=== PATIENT | female | born 1995 | race Caucasian/White ===

== ENCOUNTER → 2023-10-07 10:05 | Outpatient (REF) | payer OTHER, SELFPAY | LOC: RAD 10:05 | PROVIDERS: ATTENDING PHYSICIAN Family Medicine | DX: R10.11 Right upper quadrant pain (principal) | CPT/HCPCS: 76700 ==

== ENCOUNTER 2023-12-23 23:45 | Inpatient (IN) | payer OTHER, SELFPAY ==
[2023-12-23 19:40] VITALS: BP 159/105
[2023-12-23 20:05] LABS: HCG, Serum Qualitative Screen Negative
[2023-12-23 20:07] LABS: ALT (SGPT) 478 U/L (0-35); AST (SGOT) 342 U/L (14-36); Albumin 4.8 g/dl (3.5-5.0); Alkaline Phosphatase 296 U/L (38-126); Blood Urea Nitrogen 20 mg/dl (7-17); Calcium 10.2 mg/dl (8.4-10.2); Carbon Dioxide 21 mmol/L (22-30); Chloride 101 mmol/L (98-107); Glucose 97 mg/dl (70-99); Potassium 4.6 mmol/L (3.5-5.1); Sodium 141 mmol/L (135-145); Total Bilirubin 6.5 mg/dl (0.2-1.3); Total Protein 8.2 g/dl (6.3-8.2); eGFR > 60.00
[2023-12-23 20:08] LABS: Lipase 63 U/L (23-300)
[2023-12-23 20:11] LABS: % Basophils 0.4 % (0-2); % Eosinophils 0.4 % (0-6); % Immature Granulocytes 0.3 % (0-0.5); % Lymphocytes 20.4 % (20.5-51.1); % Monocytes 8.3 % (1.7-9.3); % Neutrophils 70.2 % (42.2-75.2); Absolute Basophils 0.1 10^3/uL (0-0.2); Absolute Eosinophils 0.1 10^3/uL (0-0.7); Absolute Lymphocytes 2.6 10^3/uL (1.2-3.4); Absolute Monocytes 1.1 10^3/uL (0.1-0.6); Absolute Neutrophils 8.9 10^3/uL (1.4-6.5); Hemoglobin 14.2 g/dL (12.0-16.0); Mean Corp Hgb Conc. 33.8 g/dL (33.0-37.0); Mean Corpuscular Hgb 29.7 pg (27.0-31.0); Mean Corpuscular Volume 87.9 fL (81.0-99.0); Mean Platelet Volume 9.4 fL (7.4-10.4); Nucleated Red Blood Cells % 0 %; Platelet Count 475 10^3/uL (130-400); Red Blood Cell Count 4.78 10^6/uL (4.20-5.40); Red Cell Dist. Width 13.3 % (11.5-14.5); White Blood Cell Count 12.7 10^3/uL (4.8-10.8)
[2023-12-23 21:35] VITALS: BP 155/92; BMI 35.6
[2023-12-23] MEDS: NSS 1000 IV (21:40)
[2023-12-23] MEDS: ROCEPHIN 1000 MG IV (21:41)
[2023-12-23 21:49] LABS: Urine Albumin 1+ (Neg - Trace); Urine Bilirubin 3+ (Negative); Urine Character Clear (Clear); Urine Color Amber; Urine Glucose Negative (Negative); Urine Ketone 3+ (Negative); Urine Leukocyte Trace (Negative); Urine Nitrite Negative (Negative); Urine Occult Blood Trace (Negative); Urine Specific Gravity 1.025 (<1.030); Urine Urobilinogen 3+ (Neg - 1+)
[2023-12-23 22:12] LABS: Urine Hyaline Cast 0-2 /LPF (0-2); Urine Mucus Many; Urine Squamous Cell 0-2 /LPF (Few)
[2023-12-23 22:14] LABS: Urine Bacteria Moderate (Negative); Urine Red Blood Cell 0-2 /HPF (0-2); Urine White Cell 0-2 /HPF (0-5)
--- NOTE | 2023-12-23 23:04 | ED.GENMED ---
History of Present Illness
General
Chief Complaint: Abdominal Symptoms
Time Seen by Provider: 12/23/23 20:57
History of Present Illness
History of Present Illness:
28-year-old female presents to the emergency department for evaluation of mild abdominal discomfort associated with jaundice and dark urine for the past 2 to 3 days. She notes that she was diagnosed with gallstones in September after having
postprandial abdominal pain, had not planned to have any surgical intervention at this point. Denies any fevers or vomiting currently. No history of intra-abdominal surgery
Past History
Past History
ED Past Medical History: None
Social History
Tobacco: Non-smoker
Drug: None
Personal: Single
Living: with family
Employment: Student
Review of Systems
Review of Systems
Allergies reviewed?: Yes
All Other Systems: ROS reviewed and negative except as documented in HPI and ROS
Phy Exam
Physical Exam
Physical Exam:
GEN: Well appearing, NAD, WDWN
Eyes: PERRLA, EOMs intact, mild scleral icterus
HENT: NCAT, oral mucosa moist, no JVD, no cervical adenopathy.
Lungs: CTAB, no wheezes, rales, rhonchi, normal chest wall excursion
Cardiac: RRR
Abdomen: S, NT, ND, NABS, no masses or hepatosplenomegaly
Neuro: AO x 3, no focal deficits to BUE/BLE, normal sensation throughout
MSK: No gross deformity or ecchymosis. No edema. No digital clubbing
Skin: No rashes, petechiae. Normal color, no pallor or jaundice.
Psych: Calm, cooperative, proper hygiene
Course
Orders/Labs/Results
Orders:
Orders
12/23/23 19:43
Test Result ONCE
12/23/23 19:49
Complete Blood Count/With Diff Urgent
Comprehensive Metabolic Panel Urgent
HCG, Serum Qualitative Screen Urgent
Lipase Urgent
12/23/23 21:07
US Abdomen Complete/Upper Urgent
Comment:
Reason For Exam: jaundice/abd pain
12/23/23 21:15
0.9% Sodium Chloride 1000 ml [Nss] 1,000 ml IV BOLUS
CefTRIAXone [Rocephin] 1,000 mg IV NOW STA
12/23/23 21:43
Urinalysis Reflex To Culture Urgent
Date Specimen was Collected: 12/23/23
Time Specimen was Collected: 21:33
Urine Microscopic Reflex Cult Urgent
Urine Culture Urgent
ARACELY Source: U
Specimen Description:
Date Specimen was Collected: 12/23/23
Time Specimen was Collected: 21:33
12/23/23 23:00
MetroNIDAZOLE 500 MG/100 ML [Flagyl 500 mg] 100 ml IV NOW
12/23/23 23:32
Admit/Transfer Patient As Directed
Co-Sign Provider:
Level of Care: Inpatient admission
Assign to:: Medical/Surgical
Physician / Group: chiara
Diagnosis: choledocholithiasis
Reason for Hospitalization: choledocholithiasis
Expected length of stay greater than two midnights?: Yes
ELOS- Estimated Length of Stay in days: 3
I certify the patient meets the requirements for IP care: Yes
12/23/23 23:33
Code Status As Directed
Resuscitation Status: Full Code
PRN Pain Medication Management As Directed
May give lesser potent ordered pain med per pt: Yes
preference::
Protocol:: Medication orders for pain may be administered in a
manner that supports deferring to patient preference
when the pt is:
- Requesting an ordered lesser potent pain medication.
Least to most potent pain medications are defined
as: acetaminophen < NSAID < tramadol < opioids
(morphine, oxycodone, hydromorphone).
- Requesting a lesser dose of the same medication IF
ORDERED.
- Requesting a less intrusive route of administration
if both routes are prescribed by the provider (PO <
IV).
Abnormal Lab Results
12/23/23 12/23/23
19:49 21:43
WBC 12.7 H 10^3/uL
(4.8-10.8)
Plt Count 475 H 10^3/uL
(130-400)
Absolute Neuts (auto) 8.9 H 10^3/uL
(1.4-6.5)
Absolute Monos (auto) 1.1 H 10^3/uL
(0.1-0.6)
Lymphocytes % 20.4 L %
(20.5-51.1)
Carbon Dioxide 21 L mmol/L
(22-30)
BUN 20 H mg/dl
(7-17)
Total Bilirubin 6.5 H mg/dl
(0.2-1.3)
AST 342 H U/L
(14-36)
ALT 478 H U/L
(0-35)
Alkaline Phosphatase 296 H U/L
(38-126)
Urine Ketones 3+ A
(Negative)
Ur Occult Blood Reflex Trace A
(Negative)
Urine Bilirubin 3+ A
(Negative)
Urine Urobilinogen 3+ A
(Neg - 1+)
Leukocyte Esterase Rfl Trace A
(Negative)
Urine Bacteria (Reflex) Moderate A
(Negative)
Urine Albumin (Reflex) 1+ A
(Neg - Trace)
12/23/23 19:49
12/23/23 19:49
Vital Signs
Initial and Last Documented VS:
Initial Vital Signs
Temp Pulse Resp BP
98.6 F 120 18 159/105
12/23/23 19:40 12/23/23 19:40 12/23/23 19:40 12/23/23 19:40
Last Documented Vital Signs
Temp Pulse Resp BP Pulse Ox
98.6 F 100 18 155/92 100
12/23/23 19:40 12/23/23 21:35 12/23/23 21:35 12/23/23 21:35 12/23/23 21:35
MDM/Problems Addressed
MDM/Problems Addressed:
Workup consistent with likely choledocholithiasis despite lack of clear biliary obstruction on ultrasound. Patient does have gallbladder sludge and wall thickening however no exam findings compatible with acute cholecystitis. Will start empiric IV
antibiotics and admit to the hospitalist service for further workup
*Critical Care Note
Total Time (30-74mins, 75-104mins- exclusive of procedures): Not Applicable
ED Attending Note
-
Portions of this chart may have been created with voice recognition software.� Occasional wrong word or��sound alike� substitutions may have occurred due to the inherent limitations of voice recognition software.
Discharge Plan
Departure
Patient Disposition: Admit
Date of Disposition: 12/23/23
Time of Disposition: 23:07
Admit to: Med/Surg
Presentation/result/management discussed w/ accepting MD/DO: Hospitalist
Discharge Problem:
Choledocholithiasis
Prescriptions:
No Action
norethindrone-e.estradiol-iron [ ()] 1.5 mg-30 mcg (21)/75 mg (7) tablet
1 tab PO HS
Theragen Tablet
1 tab PO DAILY
Referrals:
Trey Olivier MD [Family Provider] -
Interventions
Interventions:
*Risk Screen - Suicide Last Done: 12/23/23 19:40
*General Assessment Last Done: 12/23/23 19:40
*Neglect/Abuse Screening Last Done: 12/23/23 19:40
*ED COVID-19 Vaccine History Last Done: 12/23/23 19:40
QW-Yhnvvz-Tuumodwlyn Assessment Last Done: 12/23/23 21:40
Discharge Date and Time
Print Language: IRISH
--- NOTE | 2023-12-23 23:10 | HPS.HSE ---
Addendum entered and electronically signed by Huber Cutler DO 12/23/23 23:53:
Patient seen and examined independently. Agree with findings and plan as set forth by SAEID Hendricks.
Patient is a 28y F with no significant PMH who presents to ED complaining of abdominal discomfort, dark urine and development of persistent N/V for jeff past 24 hours. Patient notes that she had been diagnosed with cholelithiasis several months
ago and is scheduled to have surgical evaluation in the near future. She has had abdominal discomfort x 2-3 days and today developed N/V x several episodes. She presented to the ED for further evaluation. She denies any fevers / chills, urinary
complaints, etc.
Ass:
Cholelithiasis +/- Acute Cholecystitis
Cholestatic LFTs
Plan:
Admit for further evaluation and treatment.
NPO, IVFs, symptom control.
GI and Surgery evaluations for additional recommendations.
Will continue abx with Zosyn for now with possible ascending cholangitis based on LFTs (though no ductal dilation appreciated on US).
Original Note:
Family Physician
-
Family Physician: Trey Olivier
Chief Complaint
-
abdominal pain
History of Present Illness
28-year-old female presents to the emergency department for evaluation of mild abdominal discomfort associated and dark urine for the past 2 to 3 days. patient stated persistent nausea associated with vomiting. She notes that she was diagnosed
with gallstones in September, she was supposed to see a surgical physician on Wednesday. she had some diarrhea on Wednesday. denied fever, chills, ACEVEDO, dizzy or syncopal episode. denied chest pain, sob. denied dysuria or hematuria.
US with CHOLELITHIASIS, gallbladder sludge, and mild gallbladder wall thickening.
2. MODERATE to SEVERE DIFFUSE LIVER DISEASE (probably diffuse hepatic steatosis).
3. No sonographic evidence for biliary obstruction.
patient received ceftriaxone and Flagyl in ER. admitting for further management.
Medical History
Past Medical History
Past Medical History: Reports None
Past Surgical History: Reports None
Social History
Tobacco: Non-smoker
Alcohol: Occasional
Drug: None
Personal:
Living: With Family
Family History
Family History: Not pertinent
Allergies / Home Medications
Allergies reflects when Allergies were last updated in [facility].
Home Medications with original date entered in [facility]
Allergy/Medication List:
Allergies
Allergy/AdvReac Type Severity Reaction Status Date / Time
Sulfa (Sulfonamide Allergy Hives Verified 12/23/23 19:41
Antibiotics)
Home Medications
norethindrone 1.5 mg-ethinyl estradiol 30 mcg(21)/iron 75 mg(7) tablet (Junel FE 1.5/30 (28)) 1 tab PO HS 12/23/23
therapeutic multivitamin 1 tab PO DAILY 12/23/23
Review of Systems
-
Constitutional: Reports No Symptoms
EENT: Reports No Symptoms
Respiratory: Reports No Symptoms
Cardiac: Reports No Symptoms
Abdomen/GI: Reports Abdominal Pain, Nausea and Vomiting
: Reports No Symptoms
Musculoskeletal: Reports No Symptoms
Skin: Reports No Symptoms
Neurological: Reports No Symptoms
Endocrine: Reports No Symptoms
Hematologic/Lymphatic: Reports No Symptoms
Psych: Reports No Symptoms
Physical Exam
Vital Signs
Vital Signs
Temp Pulse Resp BP Pulse Ox
98.6 F 100 18 155/92 100
12/23/23 19:40 12/23/23 21:35 12/23/23 21:35 12/23/23 21:35 12/23/23 21:35
Physical Exam
General: Well Developed, Well Nourished and No Apparent Distress
HEENT: NormoCephalic, Moist mucous membranes and Atraumatic
Respiratory: Clear
Cardiac: S1/S2 and Regular Rhythm; No Murmur or Rub
GI: Soft, Non Tender, Non Distended and Normal Bowel Sounds; No Organomegaly
Rectal: Deferred by Provider
Musculoskeletal: No Clubbing, No Cyanosis and No Edema
Skin: No Rash
Neuro: AO x 3 and Nonfocal/grossly intact
Psych: Calm
Laboratory Results
-
12/23/23 19:49
12/23/23 19:49
Laboratory Results
Total Bilirubin 6.5 mg/dl (0.2-1.3) H 12/23/23 19:49
AST 342 U/L (14-36) H 12/23/23 19:49
ALT 478 U/L (0-35) H 12/23/23 19:49
Alkaline Phosphatase 296 U/L (38-126) H 12/23/23 19:49
Lipase 63 U/L (23-300) 12/23/23 19:49
Data Reviewed
-
Diagnostic Radiology: Report Reviewed by me
Lab Data: Labs Reviewed by me
Impression/Plan
-
#cholelithiasis/gallbladder sludge
-sepsis as evident by wbc 12.7 and tachycardia
-AST 342,ALT 478,ALk 296
-US of abdomen with CHOLELITHIASIS, gallbladder sludge, and mild gallbladder wall thickening.
2. MODERATE to SEVERE DIFFUSE LIVER DISEASE (probably diffuse hepatic steatosis).
3. No sonographic evidence for biliary obstruction.
-IV ceftriaxone and Flagyl once in ER
-Dilaudid prn for pain
-NPO
-fluids continued for hydration
-surgery consulted
#DVT prophylaxis
-scd
#CODE status
-full code
[2023-12-23] MEDS: FLAGYL 500 MG 100 IV (23:17)
[2023-12-24 00:36] VITALS: BP 143/85; BMI 35.9
--- NOTE | 2023-12-24 00:36 | PTCARENOTE ---
Pt arrived from ED via stretcher and ambulated to bed with spouse at the bedside. Pt is AAOx3, VSS, and complaints of 3/10 pain and nausea. RN given Zofran. Pt is oriented to room, resting comfortably with call hernandez within reach.
[2023-12-24] MEDS: ZOFRAN 4 MG IV ×2 (01:15→07:55)
[2023-12-24] MEDS: NSS 1000 IV ×3 (01:15→17:32)
[2023-12-24] MEDS: ZOSYN 50 IV ×4 (01:50→17:32)
--- NOTE | 2023-12-24 08:04 | CON.GI ---
Consultation
-
Date/Time Consultation Requested: 12/24/23 00:31 am
Date/Time Consultation Performed: 12/24/23 07.51 am
Requesting Provider: Joselin Wolf CRNP
Performing Provider: Jennifer Dean MD
Reason for Consultation: Abdominal Pain along jaundice and dark urine
Medical History
Chief Complaint / HPI
Chief Complaint: Epigastric abdominal pain
History of Present Illness:
The patient is a pleasant 28 year old female without significant surgical or medical history, presented to ER complaining from epigastric abdominal pain, jaundice and dark urine on 12/23/23. She reported that she has had this upper abdominal
discomfort/feeling bloated for about 5 months on and off, especially was experiencing it after she had heavy dairy products that last for 5-8 hours with nausea. She visited her PCP for that reason and was ordered an abdominal US which showed
cholelithiasis a few months back in September. She scheduled a visit with a dental appliance fixer in [place] next week to be seen. On Wednesday, she noticed that her urine had become quite dark and on Wednesday she noticed jaundice for the first time.
Therefore she presented to ER. The patient endorses epigastric pain and associated nausea and feeling bloated and she vomited on Wednesday and without any blood in her vomit. She feels a dull pain on her epigastric area and has some heartburn
and taking Pepcid which relives her heartburn. She denies dysphagia, diarrhea, radiating pain to back or lower abdominal area, fever, chills, SOB.
Past Medical History
Past Medical History: None
Past Surgical History: None
Social History
Tobacco: Non-Smoker
Alcohol: Occasional
Drug: None
Personal:
Living: With Family
Family History
Family History: Reviewed & Not Pertinent
Allergies / Home Medications
Allergy/AdvReac Type Severity Reaction Status Date / Time
Sulfa (Sulfonamide Allergy Hives Verified 12/23/23 19:41
Antibiotics)
�Medication �Instructions �Recorded
norethindrone 1.5 mg-ethinyl 1 tab PO HS 12/23/23
estradiol 30 mcg(21)/iron 75 mg(7)
tablet (Junel FE .07/07 (28))
therapeutic multivitamin 1 tab PO DAILY 12/23/23
Review of Systems
-
History Source: Patient
EENT: Reports No Symptoms
Respiratory: Reports No Symptoms
Cardiac: Reports No Symptoms
Abdomen/GI: Reports Pain
: Reports No Symptoms and Other (See HPI )
Musculoskeletal: Reports No Symptoms
Skin: Reports No Symptoms
Neurological: Reports No Symptoms
Vital Signs
Temp Pulse Resp BP Pulse Ox
98.5 F 85 18 143/85 99
12/24/23 00:36 12/24/23 00:36 12/24/23 00:36 12/24/23 00:36 12/24/23 00:36
Physical Exam
Exam
General: Well Developed, Well Nourished and Pain
HEENT: Normocephalic and Moist Mucous Membranes
Respiratory: Clear
Cardiac: S1/S2 and Regular Rhythm
GI: Soft and Tender (Mild to moderate to palpation, No guarding, no rebound )
Genito-urinary: Other (angle colored urine )
Musculoskeletal: No Clubbing, No Cyanosis and No Edema
Skin: Warm and Dry
Neuro: Awake, Alert, Oriented and AO x 3
Results
WBC 12.7 10^3/uL (4.8-10.8) H 12/23/23 19:49
Hgb 14.2 g/dL (12.0-16.0) 12/23/23 19:49
Hct 42.0 % (37.0-47.0) 12/23/23 19:49
MCV 87.9 fL (81.0-99.0) 12/23/23 19:49
Plt Count 475 10^3/uL (130-400) H 12/23/23 19:49
Absolute Neuts (auto) 8.9 10^3/uL (1.4-6.5) H 12/23/23 19:49
Sodium 141 mmol/L (135-145) 12/23/23 19:49
Potassium 4.6 mmol/L (3.5-5.1) 12/23/23 19:49
Chloride 101 mmol/L (98-107) 12/23/23 19:49
Carbon Dioxide 21 mmol/L (22-30) L 12/23/23 19:49
BUN 20 mg/dl (7-17) H 12/23/23 19:49
Creatinine 1.0 mg/dL (0.6-1.0) 12/23/23 19:49
Calcium 10.2 mg/dl (8.4-10.2) 12/23/23 19:49
Total Bilirubin 6.5 mg/dl (0.2-1.3) H 12/23/23 19:49
AST 342 U/L (14-36) H 12/23/23 19:49
ALT 478 U/L (0-35) H 12/23/23 19:49
Alkaline Phosphatase 296 U/L (38-126) H 12/23/23 19:49
Lipase 63 U/L (23-300) 12/23/23 19:49
Diagnostic Image Results:
ABD US 12/23/23
IMPRESSION:
1. CHOLELITHIASIS, gallbladder sludge, and mild gallbladder wall thickening.
2. MODERATE to SEVERE DIFFUSE LIVER DISEASE (probably diffuse hepatic steatosis).
3. No sonographic evidence for biliary obstruction.
ABD US 10/07/23
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 There is cholelithiasis but no evidence of cholecystitis.
Prior GI Procedures: No known EGD or colonoscopy
EGD:
Colonoscopy:
Assessment / Plan
-
Impression: The patient is a 28 year old female without significant surgical or medical history, presented to ER complaining from epigastric abdominal pain, jaundice and dark urine on 12/23/23. She reported that she has had this upper abdominal
discomfort/feeling bloated for about 5 months on and off, especially she was experiencing it after she had heavy dairy products that last for 5-8 hours with nausea. She was diagnosed with cholelithiasis in september 2023. On Wednesday, she noticed that
her urine had become quite dark and on Wednesday she noticed jaundice for the first time. Denies any color change with BM. Therefore she presented to ER on 12/23/23 and was obtained an Abdominal US which showed cholelithiasis and mild wall
thickening with hepatic steatosis. On PE, she has tenderness to the epigastric area as well as the RUQ.
Assessment /Plan:
#Cholelithiasis possible along choledocholithiasis
-Abd US: cholelithiasis and mild wall thickening with hepatic steatosis
-AST 223, ALT 330, ALP 230, TB 3.3 (All results trended down comparing to 12/22 results)
-UA: Angle colored with 3+ urine bilirubin and urine urobilinogen
-MRCP is planned
-Appreciated for surgery input
-
-
Thank you for consultation and allowing me to participate in the patient's care. Please call the station installer and repairer GI physician during the after hours with any questions or concerns.
--- NOTE | 2023-12-24 08:07 | CON.GS ---
Consultation
-
Date/Time Consultation Requested: 12/24/23 0031
Requesting Provider: Luciano
Reason for Consultation: cholelithiasis
Medical History
-
Chief Complaint: jaundice
History of Present Illness:
28 yo female without significant surgical or medical history who reports that she has had epigastric and RUQ discomfort intermittently for the past 5 months. She had outpatient US which demonstrated cholelithiasis and has been following as an
outpatient with gastroenterology. She notes episodes of upper abdominal discomfort and bloating primarily after heavy dairy products that last for 5-8 hours with nausea that are usually self limiting. On December 11, she had onset of this same
discomfort with heartburn symptoms which has been intermittent if not constant since that time. She scheduled a visit with her plant custodian but before she could present for evaluation she noticed that her skin and eyes were beginning to yellow
and her urine had become quite dark causing her to present to the ED for evaluation. On exam, she has tenderness to the epigastric area as well as the RUQ. She vomited yesterday and on Wednesday as well but denies active nausea and vomiting this
morning.
Past Medical History
Past Medical History: Other (obesity)
Past Surgical History: None
Social History
Tobacco: Non-Smoker
Alcohol: Occasional
Family History
Family History: Reviewed & Not Pertinent
Allergies / Home Medications
Allergy/AdvReac Type Severity Reaction Status Date / Time
Sulfa (Sulfonamide Allergy Hives Verified 12/23/23 19:41
Antibiotics)
�Medication �Instructions �Recorded �Confirmed �Type
norethindrone 1.5 mg-ethinyl 1 tab PO HS 12/23/23 12/23/23 History
estradiol 30 mcg(21)/iron 75 mg(7)
tablet (Junel FE 1.5 (28))
therapeutic multivitamin 1 tab PO DAILY 12/23/23 12/23/23 History
Review of Systems
-
History Source: Patient
All other systems: Negative unless noted
A 10 point review of systems was completed, and was negative except as per HPI.
Physical Exam
Vital Signs
Temp Pulse Resp BP Pulse Ox
98.5 F 85 18 143/85 99
12/24/23 00:36 12/24/23 00:36 12/24/23 00:36 12/24/23 00:36 12/24/23 00:36
12/23/23 12/24/23 12/25/23
06:59 06:59 06:59
Actual Weight 100.726 kg
Body Mass Index (BMI) 35.9
Lab Results
WBC 12.7 10^3/uL (4.8-10.8) H 12/23/23 19:49
Hgb 14.2 g/dL (12.0-16.0) 12/23/23 19:49
Hct 42.0 % (37.0-47.0) 12/23/23 19:49
Plt Count 475 10^3/uL (130-400) H 12/23/23 19:49
Abs Immat Gran (auto) 0.0 10^3/uL (0-0.05) 12/23/23 19:49
Neutrophils % 70.2 % (42.2-75.2) 12/23/23 19:49
Physical Exam
General: Well Developed
HEENT: Moist Mucous Membranes and Scleral Icterus
Respiratory: Non Labored Respirations
GI: Soft, Non Distended and Tender (RUQ and epigastric area)
Skin: Warm, Dry and Jaundice
Neuro: Awake, Alert and AO x 3
Psych: Calm
Data Reviewed
-
Ultrasound: Image Personally Visualized and interpreted, Report Reviewed by me, Discussed with Physician, Discussed with Nurse and Discussed with Patient
Labs: Labs Reviewed by me, Discussed with Physician, Discussed with Nurse and Discussed with Patient
Old Records: Reviewed
Assessment / Plan
-
28 yo female presenting with symptoms of biliary colic for the past 5-6 months now with persistent discomfort and elevated LFT's and mild leukocytosis. No fevers or chills. US imaging with cholelithiasis and mild wall thickening with hepatic
steatosis. Suspect choledocholithiasis given labs/symptoms.
--Gastroenterology consult pending
--Recommend eventual cholecystectomy, will need to r/o choledocholithiasis first either via MRCP or ERCP (will defer to gastroenterology)
--Continue ABX
--Analgesics and antiemetics prn
--Continue NPO
[2023-12-24 08:10] VITALS: BP 139/74
[2023-12-24 08:17] LABS: ALT (SGPT) 330 U/L (0-35); AST (SGOT) 223 U/L (14-36); Albumin 3.5 g/dl (3.5-5.0); Alkaline Phosphatase 230 U/L (38-126); Blood Urea Nitrogen 15 mg/dl (7-17); Calcium 8.6 mg/dl (8.4-10.2); Carbon Dioxide 20 mmol/L (22-30); Chloride 105 mmol/L (98-107); Estimated Creatinine Clearance > 125 ml/min; Glucose 81 mg/dl (70-99); Potassium 4.3 mmol/L (3.5-5.1); Sodium 140 mmol/L (135-145); Total Bilirubin 3.3 mg/dl (0.2-1.3); Total Protein 6.3 g/dl (6.3-8.2); eGFR > 60.00
[2023-12-24 08:21] LABS: Hematocrit 37.2 % (37.0-47.0); Hemoglobin 12.3 g/dL (12.0-16.0); Mean Corp Hgb Conc. 33.1 g/dL (33.0-37.0); Mean Corpuscular Hgb 29.9 pg (27.0-31.0); Mean Corpuscular Volume 90.3 fL (81.0-99.0); Mean Platelet Volume 9.6 fL (7.4-10.4); Platelet Count 381 10^3/uL (130-400); Red Blood Cell Count 4.12 10^6/uL (4.20-5.40); Red Cell Dist. Width 13.3 % (11.5-14.5); White Blood Cell Count 9.5 10^3/uL (4.8-10.8)
--- NOTE | 2023-12-24 11:40 | W.PN.HOSP.TC ---
Today's Communication/Plan
-
See PN
Assessment / Plan
Assessment / Plan
28yo F with cholelithiasis came with jaundice, dark urine and abd pain with nausea and vomiting for 3 days, found cholecystitis on US and cannot exclude cholelithiasis due to elevated bilirubin.
A/P:
#choledocholithiasis, cannot exclude cholecystitis
Zosyn
GI eval: MRCP
GEnSx eval - pending GI
Follow LFT
IVF
DVT ppx SCDs
FUll code
I have spent at least 39min reviewing chart, test results, communication with consultants and direct patient care
Anticipated Discharge: 24 - 48 hours
Subjective/Interval History
-
Date of Service: December 24, 2023
Objective Data
-
Labs:
Laboratory Results
12/24/23
06:54
WBC 9.5
Hgb 12.3
Hct 37.2
Plt Count 381
Sodium 140
Potassium 4.3
Chloride 105
Carbon Dioxide 20 L
BUN 15
Creatinine 0.8
Glucose 81
Calcium 8.6 D
Total Bilirubin 3.3 H
AST 223 H
ALT 330 H
Alkaline Phosphatase 230 H
Vital Signs:
Vital Signs
Temp Pulse Resp BP Pulse Ox
97.8 F 73 18 139/74 98
12/24/23 08:10 12/24/23 08:10 12/24/23 08:10 12/24/23 08:10 12/24/23 08:10
Review of Systems
-
History Source: Patient
All other systems: Reviewed and negative
Abdomen/GI: Reports Abdominal Pain
Physical Exam
-
General: No Apparent Distress
HEENT: Normocephalic
Respiratory: Clear to Auscultation
Cardiac: Regular Rhythm
GI: Soft, Nondistended and Tender
Musculoskeletal: No Clubbing, No Cyanosis and No Edema
Neuro: Awake, Alert, Oriented and AO x 3
Psych: Calm
--- NOTE | 2023-12-24 12:39 | CM ---
Patient seen at bedside with present. Patient states that she lives in a 2 story home. Patient has no DME. Patient PCP is Dr. Olivier and she uses the [facility] in [place] for pharmacy needs. Patient was independent of ADL's and IADL's prior to
admission. Patient plan is home with no needs. CM will continue to follow for discharge planning needs.
Plan; home with no needs.
[2023-12-24 16:00] VITALS: BP 121/67
[2023-12-24] MEDS: FLAGYL 500 MG 100 IV (18:05)
[2023-12-24 23:00] VITALS: BP 131/80
[2023-12-25] MEDS: ZOSYN 50 IV ×4 (00:38→17:02)
[2023-12-25] MEDS: FLAGYL 500 MG 100 IV (02:00)
[2023-12-25] MEDS: NSS 1000 IV (05:14)
[2023-12-25 06:41] LABS: % Basophils 0.6 % (0-2); % Eosinophils 1.6 % (0-6); % Immature Granulocytes 0.4 % (0-0.5); % Lymphocytes 30.4 % (20.5-51.1); Absolute Eosinophils 0.1 10^3/uL (0-0.7); Absolute Lymphocytes 2.2 10^3/uL (1.2-3.4); Absolute Monocytes 0.8 10^3/uL (0.1-0.6); Hematocrit 37.9 % (37.0-47.0); Mean Corp Hgb Conc. 31.7 g/dL (33.0-37.0); Mean Corpuscular Hgb 29.3 pg (27.0-31.0); Mean Corpuscular Volume 92.4 fL (81.0-99.0); Mean Platelet Volume 9.5 fL (7.4-10.4); Nucleated Red Blood Cells % 0 %; Platelet Count 362 10^3/uL (130-400); Red Cell Dist. Width 13.7 % (11.5-14.5); White Blood Cell Count 7.1 10^3/uL (4.8-10.8)
[2023-12-25 07:07] LABS: ALT (SGPT) 379 U/L (0-35); AST (SGOT) 261 U/L (14-36); Albumin 3.6 g/dl (3.5-5.0); Alkaline Phosphatase 241 U/L (38-126); Blood Urea Nitrogen 8 mg/dl (7-17); Calcium 9.2 mg/dl (8.4-10.2); Carbon Dioxide 20 mmol/L (22-30); Chloride 107 mmol/L (98-107); Direct Bilirubin 2.6 mg/dl (0.0-0.4); Estimated Creatinine Clearance 112 ml/min; Glucose 72 mg/dl (70-99); Potassium 4.6 mmol/L (3.5-5.1); Sodium 140 mmol/L (135-145); Total Bilirubin 3.7 mg/dl (0.2-1.3); Total Protein 6.2 g/dl (6.3-8.2); eGFR > 60.00
[2023-12-25 07:10] VITALS: BP 152/91
--- NOTE | 2023-12-25 08:46 | W.PN.GI.CBS2 ---
Today's Communication / Plan
-
- Continue low-fat diet and antibiotics
-Once bag of IV fluids runs out you can stop them. She is tolerating liquids fine
Assessment / Plan
-
Impression:
28-year-old obese female with no significant past medical history with biliary colic found to have choledocholithiasis and acute cholecystitis. Currently stable with no cholangitis awaiting ERCP on Wednesday
The patient is a 28 year old female without significant surgical or medical history, presented to ER complaining from epigastric abdominal pain, jaundice and dark urine on 12/23/23. She reported that she has had this upper abdominal
discomfort/feeling bloated for about 5 months on and off, especially she was experiencing it after she had heavy dairy products that last for 5-8 hours with nausea. She was diagnosed with cholelithiasis in september 2023. On Wednesday, she noticed that
her urine had become quite dark and on Wednesday she noticed jaundice for the first time. Denies any color change with BM. Therefore she presented to ER on 12/23/23 and was obtained an Abdominal US which showed cholelithiasis and mild wall
thickening with hepatic steatosis. On PE, she has tenderness to the epigastric area as well as the RUQ.
Assessment /Plan:
#Cholelithiasis with choledocholithiasis
-She is not cholangitic. No fever, improved white count. On antibiotics
-Abd US: cholelithiasis and mild wall thickening with hepatic steatosis
-AST 223, ALT 330, ALP 230, TB 3.3 (All results trended down comparing to 12/22 results)
-UA: May colored with 3+ urine bilirubin and urine urobilinogen
-MRCP is shows biliary ductal dilatation and distal choledocholithiasis.
-For eventual cholecystectomy
Subjective
Subjective
Date of Service: December 25, 2023
Patient doing well. No significant pain. Minimal nausea after eating last night. Did notice her urine was dark
Objective
Data Reviewed
Laboratory Data:
Laboratory Results
12/25/23 05:40
12/25/23 05:40
Laboratory Results
Total Bilirubin 3.7 mg/dl (0.2-1.3) H 12/25/23 05:40
AST 261 U/L (14-36) H 12/25/23 05:40
ALT 379 U/L (0-35) H 12/25/23 05:40
Alkaline Phosphatase 241 U/L (38-126) H 12/25/23 05:40
Lipase 63 U/L (23-300) 12/23/23 19:49
Vital Signs and I&O:
Vital Signs
Temp Pulse Resp BP Pulse Ox
98.4 F 77 18 131/80 99
12/24/23 23:00 12/24/23 23:00 12/24/23 23:00 12/24/23 23:00 12/24/23 23:00
I&O
12/24/23 12/25/23 12/26/23
06:59 06:59 06:59
Intake Total 1600 / 1600
Balance 1600 / 1600
Physical Exam
Physical Exam
HEENT: Anicteric (Mild icteric)
GI: Soft, Non Distended and Non Tender
Extremities: No Edema
Neuro: Non Focal
--- NOTE | 2023-12-25 11:08 | W.PN.HOSP.TC ---
Today's Communication/Plan
-
tolerating food well
cont LFT monitoring as per GI
Assessment / Plan
Assessment / Plan
28yo F with cholelithiasis came with jaundice, dark urine and abd pain with nausea and vomiting for 3 days, found cholecystitis on US and cannot exclude cholelithiasis due to elevated bilirubin. Planned for ERCP on 12/27/23 after that will need plan
by GenSx for cholecystectomy
A/P:
#choledocholithiasis, cannot exclude cholecystitis
Zosyn
GI eval: MRCP with choledocholithiasis
GEnSx eval - pending GI ERCP on 12/27/23
Follow LFT
IVF
DVT ppx SCDs
FUll code
I have spent at least 39min reviewing chart, test results, communication with consultants and direct patient care
Anticipated Discharge: > 48 hours
Subjective/Interval History
-
Date of Service: December 25, 2023
Objective Data
-
Labs:
Laboratory Results
12/25/23
05:40
WBC 7.1
Hgb 12.0
Hct 37.9
Plt Count 362
Sodium 140
Potassium 4.6
Chloride 107
Carbon Dioxide 20 L
BUN 8
Creatinine 0.9
Glucose 72
Calcium 9.2
Total Bilirubin 3.7 H
AST 261 H
ALT 379 H
Alkaline Phosphatase 241 H
Vital Signs:
Vital Signs
Temp Pulse Resp BP Pulse Ox
98 F 81 14 152/91 100
12/25/23 07:10 12/25/23 07:10 12/25/23 07:10 12/25/23 07:10 12/25/23 07:10
I&O
11/15/24 11/16/24 11/17/24
06:59 06:59 06:59
Intake Total 1600 / 1600
Balance 1600 / 1600
Review of Systems
-
History Source: Patient
All other systems: Reviewed and negative
Physical Exam
-
General: No Apparent Distress
HEENT: Normocephalic and Anicteric
Respiratory: Clear to Auscultation
Cardiac: Regular Rhythm
GI: Soft, Nontender and Nondistended
Skin: Warm
Neuro: Awake, Alert, Oriented and AO x 3
Psych: Calm
--- NOTE | 2023-12-25 11:11 | CM ---
CM reviewed chart, patient seen bedside, reports no needs to CM. Will continue to follow for all discharge planning needs.
Plan; home with family, no needs.
--- NOTE | 2023-12-25 12:23 | W.PN.GS2 ---
Addendum entered and electronically signed by Brice Bergman MD 12/25/23 14:31:
I saw and examined the patient.
The RETAIL STORE CLERK's note was reviewed and I agree with the note.
Comment:
No overnight events. Denies pain. Tolerating diet. No bowel function yet.
AFVSS, ABD soft, nondistended, minimally tender in the RUQ, no rebound or guarding
WBC 7.1 from 9.5, Hb 12.0 from 12.3, Cr0.9, total bili 3.7, direct bili 2.6 LFTs 261/376
Appreciate GI for ERCP, plan for Wednesday
Eventual cholecystectomy to prevent recurrence of choledocholithiasis
Diet per primary and GI
Original Note:
Today's Communication / Plan
-
Low fat diet
Eventual cholecystectomy
Assessment / Plan
-
28 yo female with jaundice secondary to choledocholithiasis. MRCP without evidence of cholecystitis
AFVSS
LFT's remain elevated
Leukocytosis resolved on abx
--Continue LFD
--Gastroenterology following for tentative ERCP given MRI findings
--Cholecystectomy this admission once CBD clear of stones, timing TBD
Subjective Data
-
Date of Service: December 25, 2023
Patient seen and examined at bedside with Dr. Bergman. Feeling better s/p eating. Discomfort to RUQ present but not severe. Denies n/v. Urine is quite dark today.
Objective Data
-
Intake and Output
12/24/23 12/25/23 12/26/23
06:59 06:59 06:59
Intake Total 1600 / 1600
Balance 1600 / 1600
Intake:
IV fluids (Total) 1500 / 1500
IV piggybacks 100 / 100
Other:
Number of approximated MODERATE 1 2
amounts of urine
Vital Signs
Temp Pulse Resp BP Pulse Ox
98 F 81 14 152/91 100
12/25/23 07:10 12/25/23 07:10 12/25/23 07:10 12/25/23 07:10 12/25/23 07:10
Lab Results
12/25/23 05:40
12/25/23 05:40
Calcium 9.2 mg/dl (8.4-10.2) 12/25/23 05:40
Total Bilirubin 3.7 mg/dl (0.2-1.3) H 12/25/23 05:40
Direct Bilirubin 2.6 mg/dl (0.0-0.4) H 12/25/23 05:40
AST 261 U/L (14-36) H 12/25/23 05:40
ALT 379 U/L (0-35) H 12/25/23 05:40
Alkaline Phosphatase 241 U/L (38-126) H 12/25/23 05:40
Total Protein 6.2 g/dl (6.3-8.2) L 12/25/23 05:40
Albumin 3.6 g/dl (3.5-5.0) 12/25/23 05:40
Physical Exam
-
NAD
ABD soft, ND, mild tenderness to RUQ
Skin jaundiced
[2023-12-25 15:10] VITALS: BP 129/81
[2023-12-25] MEDS: LOVENOX 40 MG SC (17:03)
--- NOTE | 2023-12-25 19:46 | VATNOTE ---
VAT paged to assess patient's right arm as it is swollen and PIV is in right median cube area. PIV flushing well, not infiltrated however due to patient's swelling of right arm right PIV removed and restarted in left MAB area. Patient reports
heaviness and slight pain in right upper arm area. This VAT RN suggested US to r/o DVT. Primary RN at bedside and to reach out to [employer]EL[employer] for further treatment. Right arm elevated on pillow and limb alert placed. Will continue to monitor.
[2023-12-25 23:46] VITALS: BP 135/78
[2023-12-26] MEDS: ZOSYN 50 IV ×5 (02:52→23:03)
[2023-12-26 07:10] VITALS: BP 131/83
[2023-12-26 07:24] LABS: ALT (SGPT) 442 U/L (0-35); AST (SGOT) 282 U/L (14-36); Albumin 3.8 g/dl (3.5-5.0); Alkaline Phosphatase 267 U/L (38-126); Blood Urea Nitrogen 10 mg/dl (7-17); Calcium 9.4 mg/dl (8.4-10.2); Carbon Dioxide 21 mmol/L (22-30); Chloride 105 mmol/L (98-107); Direct Bilirubin 3.4 mg/dl (0.0-0.4); Estimated Creatinine Clearance > 125 ml/min; Glucose 99 mg/dl (70-99); Potassium 4.6 mmol/L (3.5-5.1); Sodium 140 mmol/L (135-145); Total Bilirubin 4.4 mg/dl (0.2-1.3); Total Protein 6.8 g/dl (6.3-8.2); eGFR > 60.00
[2023-12-26] MEDS: ZOFRAN 4 MG IV (08:45)
--- NOTE | 2023-12-26 10:32 | W.PN.HOSP.TC ---
Today's Communication/Plan
-
pending ERCP tomorrow
start probiotics
Assessment / Plan
Assessment / Plan
28yo F with cholelithiasis came with jaundice, dark urine and abd pain with nausea and vomiting for 3 days, found cholecystitis on US and cannot exclude cholelithiasis due to elevated bilirubin. Planned for ERCP on 12/27/23 after that will need plan
by GenSx for cholecystectomy
A/P:
#choledocholithiasis, cannot exclude cholecystitis
Zosyn
GI eval: MRCP with choledocholithiasis
GEnSx eval - pending GI ERCP on 12/27/23
Follow LFT
IVF
#RUE swelling 2/2 peripheral IV infiltration
US neg for RUE DVT
#Diarrhea
2/2 Abx
Probiotics
DVT ppx SCDs
FUll code
I have spent at least 39min reviewing chart, test results, communication with consultants and direct patient care
Anticipated Discharge: 24 - 48 hours
Subjective/Interval History
-
Date of Service: December 26, 2023
Objective Data
-
Labs:
Laboratory Results
12/26/23
06:00
Sodium 140
Potassium 4.6
Chloride 105
Carbon Dioxide 21 L
BUN 10
Creatinine 0.8
Glucose 99
Calcium 9.4
Total Bilirubin 4.4 H
AST 282 H
ALT 442 H
Alkaline Phosphatase 267 H
Vital Signs:
Vital Signs
Temp Pulse Resp BP Pulse Ox
98.4 F 75 14 131/83 100
12/26/23 07:10 12/26/23 07:10 12/26/23 07:10 12/26/23 07:10 12/26/23 07:10
I&O
12/25/23 12/26/2324
06:59 06:59 06:59
Intake Total 1599 / 1599
Balance 1599 / 1599
Review of Systems
-
History Source: Patient
All other systems: Reviewed and negative
Abdomen/GI: Reports Diarrhea
Physical Exam
-
General: No Apparent Distress
HEENT: Normocephalic and Other (icteric sclera)
Respiratory: Clear to Auscultation
Cardiac: Regular Rhythm
GI: Soft, Nondistended and Tender
Neuro: Awake, Alert, Oriented and AO x 3
Psych: Calm
[2023-12-26] MEDS: VISBIOME 2 CAP PO (11:35)
--- NOTE | 2023-12-26 14:44 | W.PN.GI.CBS2 ---
Today's Communication / Plan
-
N.p.o. after midnight for ERCP
Assessment / Plan
-
Impression:
28-year-old obese female with no significant past medical history with biliary colic found to have choledocholithiasis and acute cholecystitis. Currently stable with no cholangitis awaiting ERCP on Wednesday
The patient is a 28 year old female without significant surgical or medical history, presented to ER complaining from epigastric abdominal pain, jaundice and dark urine on 12/23/23. She reported that she has had this upper abdominal
discomfort/feeling bloated for about 5 months on and off, especially she was experiencing it after she had heavy dairy products that last for 5-8 hours with nausea. She was diagnosed with cholelithiasis in september 2023. On Wednesday, she noticed that
her urine had become quite dark and on Wednesday she noticed jaundice for the first time. Denies any color change with BM. Therefore she presented to ER on 12/23/23 and was obtained an Abdominal US which showed cholelithiasis and mild wall
thickening with hepatic steatosis. On PE, she has tenderness to the epigastric area as well as the RUQ.
Assessment /Plan:
#Cholelithiasis with choledocholithiasis
-She is not cholangitic. No fever, improved white count. On antibiotics
-Abd US: cholelithiasis and mild wall thickening with hepatic steatosis
-12/25 AST 282, ALT 442, total bilirubin 4.4, direct bilirubin 3.4, alkaline phosphatase 267
-12/24 AST 223, ALT 330, ALP 230, TB 3.3 (All results trended down comparing to 12/22 results)
-UA: May colored with 3+ urine bilirubin and urine urobilinogen
-MRCP is shows biliary ductal dilatation and distal choledocholithiasis.
-For eventual cholecystectomy
ERCP tomorrow. N.p.o. after midnight
# Loose stools -possibly related to antibiotics, primary team added probiotics
If persist, check C. difficile
Subjective
Subjective
Date of Service: December 26, 2023
Patient denies any significant pain. Tolerating meals well. had roughly 4 loose stools today without any pain. No blood.
Objective
Data Reviewed
Laboratory Data:
Laboratory Results
12/25/23 05:40
12/26/23 06:00
Laboratory Results
Total Bilirubin 4.4 mg/dl (0.2-1.3) H 12/26/23 06:00
AST 282 U/L (14-36) H 12/26/23 06:00
ALT 442 U/L (0-35) H 12/26/23 06:00
Alkaline Phosphatase 267 U/L (38-126) H 12/26/23 06:00
Lipase 63 U/L (23-300) 12/23/23 19:49
Vital Signs and I&O:
Vital Signs
Temp Pulse Resp BP Pulse Ox
98.4 F 75 14 131/83 100
12/26/23 07:10 12/26/23 07:10 12/26/23 07:10 12/26/23 07:10 12/26/23 07:10
I&O
12/25/23 12/26/23 12/27/23
06:59 06:59 06:59
Intake Total 1600 / 1600
Balance 1600 / 1600
Physical Exam
Physical Exam
HEENT: Anicteric (Mildly icteric)
Cardiology: Normal Sinus Rhythm
Pulmonary: Clear
GI: Soft, Non Distended and Non Tender
Extremities: No Edema
Neuro: Non Focal
[2023-12-26 15:10] VITALS: BP 117/66
[2023-12-26] MEDS: LOVENOX 40 MG SC (17:12)
[2023-12-26 23:24] VITALS: BP 118/66
[2023-12-27] VITALS (13 sets, daily range): BP systolic 14–135; BP diastolic 75–91
[2023-12-27] MEDS: ZOSYN 50 IV ×4 (05:44→23:27)
--- NOTE | 2023-12-27 07:53 | W.PN.HOSP.TC ---
Today's Communication/Plan
-
Plan for ERCP today
Assessment / Plan
Assessment / Plan
Physical exam:
General: Well Developed, Well Nourished and No Apparent Distress
HEENT: Normocephalic, Atraumatic and Moist Mucous Membranes
Respiratory: Clear to Auscultation; Negative Wheezes, Rales or Rhonchi
Cardiac: Regular Rhythm and S1/S2
GI: Soft, Nontender and Nondistended
Musculoskeletal: No Clubbing, No Cyanosis and No Edema
Neuro: Awake, Alert and Oriented
Psych: Calm
A/P:
28yo F with cholelithiasis came with jaundice, dark urine and abd pain with nausea and vomiting for 3 days, found cholecystitis on US and cannot exclude cholelithiasis due to elevated bilirubin. Planned for ERCP on 12/27/23 after that will need plan
by GenSx for cholecystectomy
A/P:
#choledocholithiasis
Zosyn
GI eval: MRCP with choledocholithiasis-plan for ERCP today
GEnSx eval for cholecystectomy tomorrow
Follow LFT
IVF
#RUE swelling 2/2 peripheral IV infiltration
US neg for RUE DVT
#Diarrhea
2/2 Abx
Probiotics
DVT ppx SCDs
FUll code
Anticipated Discharge: Within 24 hours
Subjective/Interval History
-
Date of Service: December 27, 2023
Patient with some abdominal discomfort but no worsening pain. No nausea or vomiting.
Objective Data
-
Labs:
Laboratory Results
12/27/23
07:29
WBC Pending
Hgb Pending
Hct Pending
Plt Count Pending
Sodium Pending
Potassium Pending
Chloride Pending
Carbon Dioxide Pending
BUN Pending
Creatinine Pending
Glucose Pending
Calcium Pending
Total Bilirubin Pending
AST Pending
ALT Pending
Alkaline Phosphatase Pending
Vital Signs:
Vital Signs
Temp Pulse Resp BP Pulse Ox
97.7 F 83 18 118/66 98
12/26/23 23:24 12/26/23 23:24 12/26/23 23:24 12/26/23 23:24 12/27/23 00:16
I&O
12/26/23 12/27/23 12/28/23
06:59 06:59 06:59
Intake Total 480 / 480
Balance 480 / 480
[2023-12-27] MEDS: NSS 1000 IV (08:12)
[2023-12-27 08:17] LABS: % Basophils 0.8 % (0-2); % Eosinophils 1.4 % (0-6); % Immature Granulocytes 0.5 % (0-0.5); % Lymphocytes 25.6 % (20.5-51.1); % Monocytes 12.9 % (1.7-9.3); % Neutrophils 58.8 % (42.2-75.2); Absolute Basophils 0.1 10^3/uL (0-0.2); Absolute Eosinophils 0.1 10^3/uL (0-0.7); Absolute Immature Granulocytes 0.1 10^3/uL (0-0.05); Absolute Lymphocytes 2.4 10^3/uL (1.2-3.4); Absolute Monocytes 1.2 10^3/uL (0.1-0.6); Absolute Neutrophils 5.4 10^3/uL (1.4-6.5); Hematocrit 38.4 % (37.0-47.0); Hemoglobin 12.9 g/dL (12.0-16.0); Mean Corp Hgb Conc. 33.6 g/dL (33.0-37.0); Mean Corpuscular Volume 89.3 fL (81.0-99.0); Mean Platelet Volume 9.6 fL (7.4-10.4); Nucleated Red Blood Cells % 0 %; Platelet Count 419 10^3/uL (130-400); Red Cell Dist. Width 14.1 % (11.5-14.5); White Blood Cell Count 9.2 10^3/uL (4.8-10.8)
[2023-12-27] MEDS: ZOFRAN 4 MG IV (08:21)
[2023-12-27] MEDS: VISBIOME 2 CAP PO (08:21)
[2023-12-27 09:54] LABS: ALT (SGPT) 553 U/L (0-35); AST (SGOT) 395 U/L (14-36); Albumin 4.2 g/dl (3.5-5.0); Alkaline Phosphatase 266 U/L (38-126); Blood Urea Nitrogen 14 mg/dl (7-17); Calcium 9.5 mg/dl (8.4-10.2); Carbon Dioxide 23 mmol/L (22-30); Chloride 102 mmol/L (98-107); Direct Bilirubin 4.3 mg/dl (0.0-0.4); Estimated Creatinine Clearance 112 ml/min; Glucose 86 mg/dl (70-99); Potassium 4.4 mmol/L (3.5-5.1); Sodium 141 mmol/L (135-145); Total Bilirubin 5.6 mg/dl (0.2-1.3); Total Protein 7.3 g/dl (6.3-8.2); eGFR > 60.00
--- NOTE | 2023-12-27 12:13 | W.PN.GS2 ---
Addendum entered and electronically signed by Jason Pettit MD 12/27/23 16:53:
I saw and examined the patient independently.
The Field Gauger's note was reviewed and I agree with the note, assessment and plan except where noted below.
Comment: This is a 28-year-old female with jaundice secondary to choledocholithiasis seen on MRCP. Exam benign.
ERCP today.
Updates: ERCP negative.
Will plan for a laparoscopic cholecystectomy in the OR tomorrow.
N.p.o., IV fluids, IV antibiotics.
Risks/Benefits/Alternatives, expected postoperative course and possible complications (bleeding, infection, injury to surrounding structures, acute/chronic pain) discussed at length. Patient wishes to proceed with surgery. All questions answered.
Original Note:
Today's Communication / Plan
-
ERCP
Assessment / Plan
-
28 yo female with jaundice secondary to choledocholithiasis. MRCP without evidence of cholecystitis
AFVSS
LFT's remain elevated with rise in bilirubin today
Leukocytosis resolved on abx
--NPO for ERCP today with gastroenterology
--Cholecystectomy this admission once CBD clear of stones, tentatively tomorrow pending ERCP findings
Subjective Data
-
Date of Service: December 27, 2023
Patient seen and examined at bedside with Dr. Pettit. Denies n/v. Some RUQ discomfort remains.
Objective Data
-
Intake and Output
12/26/23 12/27/23 12/28/23
06:59 06:59 06:59
Intake Total 480 / 480
Balance 480 / 480
Intake:
Oral fluids 480 / 480
Other:
Number of approximated MODERATE 2 4
amounts of urine
Vital Signs
Temp Pulse Resp BP Pulse Ox
98.4 F 73 18 130/77 98
12/27/23 07:01 12/27/23 07:01 12/27/23 07:01 12/27/23 07:01 12/27/23 11:06
Lab Results
12/27/23 07:29
12/27/23 07:29
Calcium 9.5 mg/dl (8.4-10.2) 12/27/23 07:29
Total Bilirubin 5.6 mg/dl (0.2-1.3) H 12/27/23 07:
Direct Bilirubin 4.3 mg/dl (0.0-0.4) H 12/27/23 07:29
AST 395 U/L (14-36) H 12/27/23 07:29
ALT 553 U/L (0-35) H* 12/27/23 07:29
Alkaline Phosphatase 266 U/L (38-126) H 12/27/23 07:29
Total Protein 7.3 g/dl (6.3-8.2) 12/27/23 07:29
Albumin 4.2 g/dl (3.5-5.0) 12/27/23 07:29
Physical Exam
-
NAD
Icteric sclera
ABD soft, ND, mild tenderness to RUQ
Skin jaundiced
--- NOTE | 2023-12-27 12:36 | PTCARENOTE ---
Addendum entered by Jagruti Trevino RN 12/27/23 19:53:
Patient returned from ERCP. Denies pain, nausea or vomiting. Vital signs stable. Patient for lap hari tomorrow.
Original Note:
Patient [id number] today. Patient has been NPO since Midnight. Patient understands procedure and denies questions at this time.
[2023-12-27] MEDS: LOVENOX 40 MG SC (18:21)
[2023-12-27] MEDS: TORADOL 15 MG IV (21:19)
[2023-12-27] MEDS: FLUSH (NSS) 2 FLUSH IV ×2 (21:20→23:29)
[2023-12-28] VITALS (16 sets, daily range): BP systolic 139–162; BP diastolic 83–102
[2023-12-28] MEDS: TORADOL 15 MG IV (04:59)
[2023-12-28] MEDS: FLUSH (NSS) 2 FLUSH IV ×4 (05:03→23:43)
[2023-12-28] MEDS: ZOSYN 50 IV ×4 (05:32→23:43)
[2023-12-28] MEDS: DILAUDID 0.5 MG IV ×5 (05:41→21:22)
--- NOTE | 2023-12-28 07:22 | W.SUR.PREOP ---
Pre-Operative Surgical Note
-
I have examined this patient prior to the performance of the scheduled procedure. 28-year-old female with choledocholithiasis that appears to resolved spontaneously. Negative ERCP yesterday, now with likely pancreatitis.
The patient's condition is unchanged from the time of the current History and
Physical and the patient is able to undergo the scheduled procedure.
[2023-12-28] MEDS: VISBIOME PO ×2 (08:23→08:56)
[2023-12-28 08:25] LABS: % Basophils 0.2 % (0-2); % Eosinophils 0.1 % (0-6); % Immature Granulocytes 0.4 % (0-0.5); % Lymphocytes 16.2 % (20.5-51.1); % Monocytes 10.1 % (1.7-9.3); Absolute Immature Granulocytes 0.1 10^3/uL (0-0.05); Absolute Lymphocytes 2.7 10^3/uL (1.2-3.4); Absolute Monocytes 1.7 10^3/uL (0.1-0.6); Absolute Neutrophils 12.1 10^3/uL (1.4-6.5); Hematocrit 38.8 % (37.0-47.0); Hemoglobin 12.6 g/dL (12.0-16.0); Mean Corp Hgb Conc. 32.5 g/dL (33.0-37.0); Mean Corpuscular Hgb 29.4 pg (27.0-31.0); Mean Corpuscular Volume 90.4 fL (81.0-99.0); Mean Platelet Volume 9.6 fL (7.4-10.4); Nucleated Red Blood Cells % 0 %; Platelet Count 429 10^3/uL (130-400); Red Blood Cell Count 4.29 10^6/uL (4.20-5.40); Red Cell Dist. Width 13.9 % (11.5-14.5); White Blood Cell Count 16.6 10^3/uL (4.8-10.8)
[2023-12-28] MEDS: ZOFRAN 4 MG IV ×2 (08:35→23:53)
--- NOTE | 2023-12-28 08:42 | W.PN.HOSP.TC ---
Today's Communication/Plan
-
IV fluids. Cholecystectomy today. Pain control
Assessment / Plan
Assessment / Plan
Physical exam:
General: Well Developed, Well Nourished and No Apparent Distress
HEENT: Normocephalic, Atraumatic and Moist Mucous Membranes
Respiratory: Clear to Auscultation; Negative Wheezes, Rales or Rhonchi
Cardiac: Regular Rhythm and S1/S2
GI: Soft, tender and Nondistended. Postop findings
Musculoskeletal: No Clubbing, No Cyanosis and No Edema
Neuro: Awake, Alert and Oriented
Psych: Calm
ERCP:
- Multiple filling defects in gallbladder consistent
with stones were seen on the cholangiogram.
- The common bile duct was mildly dilated without
filling defects.
- The examination was suspicious for
cholecystolithiasis.
- A biliary sphincterotomy was performed.
- The biliary tree was swept and scant amount of
sludge was found. No stone was retrieved.
- LR was administered for PEP prophylaxis.
A/P:
28yo F with cholelithiasis came with jaundice, dark urine and abd pain with nausea and vomiting for 3 days, found cholecystitis on US and cannot exclude cholelithiasis due to elevated bilirubin. Planned for ERCP on 12/27/23 after that will need plan
by GenSx for cholecystectomy
A/P:
#Acute pancreatitis probably post ERCP
#choledocholithiasis
Zosyn
GI eval: MRCP with choledocholithiasis-status post ERCP on 12/26-see results above
GEnSx eval for cholecystectomy today
Follow LFT
IVF
#RUE swelling 2/2 peripheral IV infiltration
US neg for RUE DVT
#Diarrhea
2/2 Abx
Probiotics
DVT ppx SCDs
FUll code
Anticipated Discharge: 24 - 48 hours
Subjective/Interval History
-
Date of Service: December 28, 2023
Patient seen postop. Some abdominal discomfort. No nausea or vomiting, no chest pain or shortness of breath
Objective Data
-
Labs:
Laboratory Results
12/28/23
08:02
WBC 16.6 H
Hgb 12.6
Hct 38.8
Plt Count 429 H
Sodium Pending
Potassium Pending
Chloride Pending
Carbon Dioxide Pending
BUN Pending
Creatinine Pending
Glucose Pending
Calcium Pending
Total Bilirubin Pending
AST Pending
ALT Pending
Alkaline Phosphatase Pending
Vital Signs:
Vital Signs
Temp Pulse Resp BP Pulse Ox
98.5 F 79 18 148/89 100
12/28/23 08:12 12/28/23 08:12 12/28/23 08:12 12/28/23 08:12 12/28/23 08:12
I&O
12/27/23 12/28/23 12/29/23
06:59 06:59 06:59
Intake Total 480 / 480 350 / 350 50 / 50
Balance 480 / 480 350 / 350 50 / 50
[2023-12-28 09:00] LABS: AST (SGOT) 560 U/L (14-36); Alkaline Phosphatase 273 U/L (38-126); Blood Urea Nitrogen 17 mg/dl (7-17); Calcium 9.5 mg/dl (8.4-10.2); Carbon Dioxide 22 mmol/L (22-30); Chloride 104 mmol/L (98-107); Direct Bilirubin 2.7 mg/dl (0.0-0.4); Estimated Creatinine Clearance > 125 ml/min; Glucose 102 mg/dl (70-99); Potassium 4.6 mmol/L (3.5-5.1); Sodium 139 mmol/L (135-145); Total Bilirubin 3.7 mg/dl (0.2-1.3); eGFR > 60.00
[2023-12-28 09:05] LABS: ALT (SGPT) 745 U/L (0-35)
--- NOTE | 2023-12-28 11:47 | W.IMMPOSTOP ---
Surgical Immed Post Op Note
-
Primary Surgeon: Jason Pettit MD
Assisting Surgeon: None
Pre-op Diagnosis: Choledocholithiasis
Post-op Diagnosis: Same
Procedure Performed:
1. Laparoscopic cholecystectomy with cholangiogram
2. Laparoscopic transcystic common bile duct exploration
Anesthesia Type: General
Specimen / Cultures: Gallbladder and contents
Estimated Blood Loss: 11 cc
Complications: None
Operative Findings: Distended gallbladder with some mild chronic inflammation. Critical view of safety obtained prior to a cholangiogram. Positive IOC with thick sludge and stones, cleared with glucagon and advancement of the cholangiocatheter
into the duodenum. Duct ligated with a clip followed by 0 PDS Endoloop.
POST OP PLAN:
Imaging: None
Labs: Routine AM
Diet: Advance to Regular as tolerated
Analgesia: Tylenol 650mg q6 Tara, Mayi 5mg q6 PRN, Dilaudid 0.5mg q2h PRN
Neuro/vascular checks: q4h
AC/AP: Hold Therapeutic AC, Ok for DVT PPx
Activity: Ad Bel
Wound/Incisions/Drains: Routine
Abx: None
Dispo: RNF
[2023-12-28 12:28] LABS: Lipase > 4000 U/L (23-300)
[2023-12-28] MEDS: DILAUDID 0.25 MG IV ×2 (12:29→12:51)
--- NOTE | 2023-12-28 12:29 | OR.RPT ---
Operative Report
Operative Report
Patient Name: Venessa Dwyer
: 1995
Date of Operation: 12/28/2023
Preoperative Diagnosis: Choledocholithiasis
Postoperative Diagnosis: Choledocholithiasis, chronic cholecystitis
Procedure(s):
1. Laparoscopic Cholecystectomy with Cholangiogram
2. Laparoscopic transcystic common bile duct exploration
Surgeon(s):
Dr. Pettit
U[employer]se(s):
ARSLAN Jefferson
Anesthesia: General
Estimated Blood Loss: 11 cc
Urine Output: None
Drains/Lines/Implants: None
Specimens:
1. Gallbladder and contents
HPI/Surgical Indications:
28-year-old obese female with no prior medical or surgical history who presents with intermittent but now more severe epigastric and right upper quadrant pain over the past several months. On admission she was noted to have an elevated bilirubin up
to 6.5 and underwent an MRCP which demonstrated choledocholithiasis. As such she was admitted with plan for ERCP which occurred on 12/27/2023. Interestingly no choledocholithiasis was identified other than some sludge. Sphincterotomy was
performed but no stent was placed. After discussion of Risks/Benefits/Alternatives the patient agreed to proceed with surgery.
Operative Findings: Distended gallbladder with some mild chronic inflammation. Critical view of safety obtained prior to a cholangiogram. Positive IOC with thick sludge and stones, cleared with glucagon and advancement of the cholangiocatheter
into the duodenum. Duct ligated with a clip followed by 0 PDS Endoloop.
Procedure Description:
The patient was brought to the Operating Room and placed in the supine position. Following uneventful induction of general endotracheal anesthesia, an orogastric tube was placed. The abdomen was prepped and draped in the usual sterile fashion. A
timeout was performed confirming the procedure, consent, and that IV antibiotics were infused and sequential compression devices were confirmed to be on. The abdomen was entered using a left subcostal Veress technique which required a single pass
followed by a 5 mm right upper quadrant Optiview trocar. Pneumoperitoneum to 15 mmHg pressure was obtained without difficulty and we confirmed that no injury had occurred during our entry. The patient was positioned in reverse Trendelenberg and
rotated with the right side up slightly. Two 5 mm trocars were then placed along the right subcostal margin, followed by a 12 mm port in the epigastrium. A locking grasping forceps was placed on the fundus of the gallbladder where it was then
retracted cephalad and to the right. Using appropriate grasping instruments, the peritoneum overlying the triangle of Calot was incised and extended superiorly on both the anterior and posterior gallbladder thacker. The infundibulum was dissected off
the cystic plate. The cystic triangle was dissected until a critical view of safety was achieved. No true cystic artery was identified. The cystic duct/gallbladder junction in turn was identified, dissected circumferentially and a clip was placed.
A ductotomy was made and a cholangiocatheter on an Rosado clamp was inserted into the cystic duct. A C-arm was draped and brought into the field. An intra-operative cholangiogram was performed.
The biliary ducts were markedly dilated and there was a large filling defect in the distal common bile duct. 1 mg of glucagon was administered and under direct fluoroscopic guidance the cholangiocatheter was advanced into the duodenum. As we did
this, the filling defect appeared to break up and slowly flush into the duodenum. After several passes completion cholangiogram was performed which demonstrated no residual filling defects of the biliary tree and brisk flow of contrast into the
duodenum.
The catheter was then removed and the cystic duct was controlled with a clip followed by a 0 PDS Endoloop. After ensuring both the artery and duct were divided, the gallbladder was freed from the liver using electrocautery. There was a fairly
robust superficial posterior vessel running along the gallbladder fossa concerning for a posterior cystic artery. This was ligated high on the gallbladder posteriorly. There was no spillage of bile or stones. The gallbladder bed was inspected and
excellent hemostasis was obtained. The gallbladder was extracted through the 12 mm trocar site using an endocatch bag, this port site had to be enlarged due to the size of the underlying gallstones. The abdomen was again irrigated and excellent
hemostasis was assured. The 12 mm trocar site was closed using 0 PDS suture. All remaining trocars were then removed and the pneumoperitoneum was evacuated. All trocar sites were closed at the skin level using 4-0 Monocryl followed by Dermabond.
Overall, the patient tolerated the procedure well and was taken to the Recovery Room postoperatively in stable condition.
I was the attending physician and performed the procedure with assistance from the CIGARETTE STAMPER above. I was present for all portions of the case, excluding skin closure
Jason Pettit MD
--- NOTE | 2023-12-28 15:51 | PTCARENOTE ---
Patient status post lap hari. Puncture sites clean and dry with intact glue. Vital signs stable. Patient urinating and tolerating clear liquids. Medicated once with dilaudid IV post surgical procedure for abdominal pain in mostly upper quadrants
and above umbilicus. Patient with adequate pain relief. Denies nausea/no vomiting. Encouraged to continue to take in clear liquids. Family at bedside.
[2023-12-28] MEDS: LOVENOX 40 MG SC (17:21)
[2023-12-29] MEDS: TORADOL 15 MG IV ×2 (02:18→19:41)
[2023-12-29] MEDS: FLUSH (NSS) 2 FLUSH IV (02:19)
[2023-12-29 03:43] VITALS: BP 152/94
[2023-12-29] MEDS: ZOSYN 50 IV (05:54)
[2023-12-29 07:30] VITALS: BP 145/92
[2023-12-29 08:07] LABS: % Basophils 0.2 % (0-2); % Immature Granulocytes 0.5 % (0-0.5); % Lymphocytes 7.5 % (20.5-51.1); % Monocytes 9.6 % (1.7-9.3); % Neutrophils 82.2 % (42.2-75.2); Absolute Basophils 0.1 10^3/uL (0-0.2); Absolute Immature Granulocytes 0.1 10^3/uL (0-0.05); Absolute Lymphocytes 1.6 10^3/uL (1.2-3.4); Absolute Neutrophils 17.4 10^3/uL (1.4-6.5); Hematocrit 38.2 % (37.0-47.0); Hemoglobin 12.7 g/dL (12.0-16.0); Mean Corp Hgb Conc. 33.2 g/dL (33.0-37.0); Mean Corpuscular Hgb 30.1 pg (27.0-31.0); Mean Corpuscular Volume 90.5 fL (81.0-99.0); Nucleated Red Blood Cells % 0 %; Platelet Count 441 10^3/uL (130-400); Red Blood Cell Count 4.22 10^6/uL (4.20-5.40); Red Cell Dist. Width 14.3 % (11.5-14.5); White Blood Cell Count 21.2 10^3/uL (4.8-10.8)
--- NOTE | 2023-12-29 08:37 | W.PN.HOSP.TC ---
Today's Communication/Plan
-
IV fluids. Pain control
Assessment / Plan
Assessment / Plan
Physical exam:
General: Acutely ill and some apparent distress
HEENT: Normocephalic, Atraumatic and Moist Mucous Membranes
Respiratory: Clear to Auscultation; Negative Wheezes, Rales or Rhonchi
Cardiac: Regular Rhythm and S1/S2
GI: Soft, tender and Nondistended. Postop findings
Musculoskeletal: No Clubbing, No Cyanosis and No Edema
Neuro: Awake, Alert and Oriented
Psych: Calm
ERCP:
- Multiple filling defects in gallbladder consistent
with stones were seen on the cholangiogram.
- The common bile duct was mildly dilated without
filling defects.
- The examination was suspicious for
cholecystolithiasis.
- A biliary sphincterotomy was performed.
- The biliary tree was swept and scant amount of
sludge was found. No stone was retrieved.
- LR was administered for PEP prophylaxis.
A/P:
Choledocholithiasis:
MRCP with positive findings
Status post ERCP on 12/26 with negative findings as above status post sphincterotomy (no stent)
Status post cholecystectomy on 12/27 and cholangiogram that was indeed positive for stones status post LTCBDE
Discussed with at bedside
Acute pancreatitis, post ERCP:
IV fluid
Pain control
Advance diet as tolerated
Lipase over 4000
Postop pain likely related to pancreatitis and also suspect probable expected postop/pancreatitis ileus:
Continue to monitor closely
Leukocytosis:
Likely reactive
No clear signs of infection
Stop antibiotics today on 12/28 as recommended by surgery
Morbid obesity:
Lifestyle changes warranted
DVT prophylaxis:
Lovenox SQ
CODE STATUS:
Full code
Anticipated Discharge: 24 - 48 hours
Subjective/Interval History
-
Date of Service: December 29, 2023
Patient still having abdominal pain. Patient has not passed any gas and she has not had any bowel movement. No nausea or vomiting. Afebrile
Objective Data
-
Labs:
Laboratory Results
12/29/23
07:41
WBC 21.2 H
Hgb 12.7
Hct 38.2
Plt Count 441 H
Sodium Pending
Potassium Pending
Chloride Pending
Carbon Dioxide Pending
BUN Pending
Creatinine Pending
Glucose Pending
Calcium Pending
Total Bilirubin Pending
AST Pending
ALT Pending
Alkaline Phosphatase Pending
Vital Signs:
Vital Signs
Temp Pulse Resp BP Pulse Ox
98.5 F 88 16 152/94 97
12/29/23 03:43 12/29/23 03:43 12/29/23 03:43 12/29/23 03:43 12/29/23 03:43
I&O
12/28/23 12/29/23 12/30/23
06:59 06:59 06:59
Intake Total 350 / 350 1640 / 1640
Balance 350 / 350 1640 / 1640
--- NOTE | 2023-12-29 08:53 | W.PN.GS2 ---
Today's Communication / Plan
-
Pain control
Will keep on clears only for now
Assessment / Plan
-
This is a 28-year-old female who presented with right upper quadrant pain found to have choledocholithiasis on MRCP s/p negative ERCP 12/27/2023 with subsequent development of pancreatitis. She is POD #1 from a laparoscopic cholecystectomy with
cholangiogram that was positive, successful LTCBDE. Fairly significant pain currently, likely a combination of expected postop pain and sequela of pancreatitis.
Afebrile, vital signs stable. Leukocytosis up to 21K, hemoglobin stable, CMP and lipase pending
Okay for clears
Can stop antibiotics, no concern for infection at this time.
Pain and nausea control
Will follow with serial abdominal exams
Time Spent
Total Time Spent with Patient (in minutes): 20
Subjective Data
-
Date of Service: December 29, 2023
Interval Events:
No acute events overnight but patient is in fairly significant pain. Endorses severe Nausea, but no vomiting. Tolerating some liquids. She states her pain is mostly in the right upper quadrant and in her mid abdomen.
Objective Data
-
Intake and Output
12/28/23 12/29/23 12/30/23
06:59 06:59 06:59
Intake Total 350 / 350 1640 / 1640
Balance 350 / 350 1640 / 1640
Intake:
Oral fluids 300 / 300 240 / 240
IV fluids (Total) 1200 / 1200
Normosal 200 / 200
IV piggybacks 50 / 50 200 / 200
Other:
Number of approximated MODERATE 1 1
amounts of urine
Number of approximated LARGE 4 2
amounts of urine
Vital Signs
Temp Pulse Resp BP Pulse Ox
98.5 F 88 16 152/94 97
12/29/23 03:43 12/29/23 03:43 12/29/23 03:43 12/29/23 03:43 12/29/23 03:43
Lab Results
12/29/23 07:41
Calcium 9.5 mg/dl (8.4-10.2) 12/28/23 08:02
Total Bilirubin 3.7 mg/dl (0.2-1.3) H 12/28/23 08:02
Direct Bilirubin 2.7 mg/dl (0.0-0.4) H 12/28/23 08:02
AST 560 U/L (14-36) H* 12/28/23 08:02
ALT 745 U/L (0-35) H* 12/28/23 08:02
Alkaline Phosphatase 273 U/L (38-126) H 12/28/23 08:02
Total Protein 7.0 g/dl (6.3-8.2) 12/28/23 08:02
Albumin 4.0 g/dl (3.5-5.0) 12/28/23 08:02
Physical Exam
-
GENERAL/NEURO: Awake, Alert, no distress
CHEST: Unlabored breathing on RA
ABDOMEN: Soft, obese, somewhat diffusely tender (mostly right-sided) but not peritonitic.
[2023-12-29] MEDS: VISBIOME 2 CAP PO (08:58)
[2023-12-29] MEDS: FLUSH (NSS) 1 FLUSH IV ×4 (09:03→15:46)
[2023-12-29] MEDS: ZOFRAN 4 MG IV ×3 (09:03→22:18)
[2023-12-29] MEDS: DILAUDID 0.5 MG IV (09:17)
[2023-12-29 09:38] LABS: AST (SGOT) 439 U/L (14-36); Alkaline Phosphatase 198 U/L (38-126); Blood Urea Nitrogen 14 mg/dl (7-17); Calcium 9.3 mg/dl (8.4-10.2); Carbon Dioxide 25 mmol/L (22-30); Chloride 101 mmol/L (98-107); Estimated Creatinine Clearance > 125 ml/min; Glucose 116 mg/dl (70-99); Potassium 4.5 mmol/L (3.5-5.1); Sodium 139 mmol/L (135-145); Total Bilirubin 2.5 mg/dl (0.2-1.3); Total Protein 6.9 g/dl (6.3-8.2); eGFR > 60.00
[2023-12-29 09:53] LABS: ALT (SGPT) 815 U/L (0-35)
[2023-12-29 10:17] LABS: Lipase > 4000 U/L (23-300)
[2023-12-29 11:24] VITALS: BP 159/98
[2023-12-29] MEDS: TYLENOL 1000 MG PO ×3 (12:43→23:20)
[2023-12-29] MEDS: LR 1000 IV ×2 (12:43→19:32)
--- NOTE | 2023-12-29 14:59 | W.PN.GI.CBS2 ---
Today's Communication / Plan
-
Lactated Ringer's at 150 cc/h
Clear liquid diet
Trend LFT
Assessment / Plan
-
Impression:
The patient is a 28 year old female without significant surgical or medical history, presented to ER complaining from epigastric abdominal pain, jaundice and dark urine on 12/23/23. She reported that she has had this upper abdominal
discomfort/feeling bloated for about 5 months on and off, especially she was experiencing it after she had heavy dairy products that last for 5-8 hours with nausea. She was diagnosed with cholelithiasis in september 2023. On Wednesday, she noticed that
her urine had become quite dark and on Wednesday she noticed jaundice for the first time. Denies any color change with BM. Therefore she presented to ER on 12/23/23 and was obtained an Abdominal US which showed cholelithiasis and mild wall
thickening with hepatic steatosis. On PE, she has tenderness to the epigastric area as well as the RUQ.
Assessment /Plan:
- Cholelithiasis with choledocholithiasis s/p ERCP then lap hari with IOC
- post procedural pancreatitis
-Abd US: cholelithiasis and mild wall thickening with hepatic steatosis
-UA: May colored with 3+ urine bilirubin and urine urobilinogen
-MRCP is shows biliary ductal dilatation and distal choledocholithiasis.
ERCP 12/27/2023 Dr. Mason
Multiple filling defects in gallbladder noted on the cholangiogram
Common bile duct was mildly dilated without filling defect.
Biliary sphincterotomy was performed.
Biliary tree was swept and small amount of sludge was removed. No stone was retrieved
Lap hari with IOC Dr. Pettit 12/28/2023
Cholecystectomy. Positive IOC with thick sludge and stones, cleared with glucagon and advancement of cholangiocatheter into the duodenum.
Labs this a.m. 12/29/2023
WBC 21.2�Hb 12.7/platelet 441
AST 439/ALT 15/alkaline phosphatase 198/total bilirubin 2.5
Lipase > 4000
plan
okay to try clear liquids if no pain
Lactated Ringer's at 150 cc/h
Pain management as per medical/surgical team
Leukocytosis likely reactive. Antibiotics was DC by surgery today
Continue trend LFT
Follow-up surgical recommendation
-
Total Time Spent with Patient (in minutes): 35
Subjective
Subjective
Date of Service: December 29, 2023
Complaining of epigastric abdominal pain. Patient underwent lap hari yesterday. Operative report reviewed
Objective
Data Reviewed
Laboratory Data:
Laboratory Results
12/29/23 07:41
12/29/23 07:41
Laboratory Results
Total Bilirubin 2.5 mg/dl (0.2-1.3) H 12/29/23 07:41
AST 439 U/L (14-36) H 12/29/23 07:41
ALT 815 U/L (0-35) H* 12/29/23 07:41
Alkaline Phosphatase 198 U/L (38-126) H 12/29/23 07:41
Lipase > 4000 U/L (23-300) H* 12/29/23 07:41
Vital Signs and I&O:
Vital Signs
Temp Pulse Resp BP Pulse Ox
98.3 F 85 18 159/98 96
12/29/23 11:24 12/29/23 11:24 12/29/23 11:24 12/29/23 11:24 12/29/23 11:24
I&O
12/28/23 12/29/23 12/30/23
06:59 06:59 06:59
Intake Total 350 / 350 1640 / 1640
Balance 350 / 350 1640 / 1640
Physical Exam
Physical Exam
GI: Soft, Non Distended and Tender (Epigastric tenderness)
[2023-12-29 15:20] VITALS: BP 171/89
[2023-12-29 15:21] VITALS: BMI 35.9
--- NOTE | 2023-12-29 16:19 | PTCARENOTE ---
Pt AAO x3, MEDINA well, ambulatory in room and smart. Pt anxious/tearful at times. VSS. On room air- pulseox 99%. Abd obese, soft, tender RUQ, BS (+), decreased. Pt with c/o nausea- good effect with prn Zofran. Refusing clear liquid diet- taking
only H2O PO. Voiding in BR without difficulty. Abd sites x5 [employer]ESS[employer] FAMILY [employer]IC[employer]; D/I, no drainage noted. IVF's RL @ 150 ml/hr infusinf via Lt wrist site without sx of infiltration. Resting in bed at present. Will continue to monitor.
[2023-12-29] MEDS: LOVENOX 40 MG SC (17:26)
[2023-12-29 23:06] VITALS: BP 149/93
[2023-12-29] MEDS: ANESTHETIC LOZENGE 1 LOZENGE PO (23:19)
[2023-12-30] MEDS: LR 1000 IV ×3 (02:01→18:35)
[2023-12-30] MEDS: TYLENOL 1000 MG PO ×4 (05:51→23:02)
[2023-12-30 07:00] VITALS: BP 152/95
[2023-12-30 08:26] LABS: Hematocrit 35.5 % (37.0-47.0); Hemoglobin 11.2 g/dL (12.0-16.0); Mean Corp Hgb Conc. 31.5 g/dL (33.0-37.0); Mean Corpuscular Hgb 29.2 pg (27.0-31.0); Mean Corpuscular Volume 92.7 fL (81.0-99.0); Platelet Count 422 10^3/uL (130-400); Red Blood Cell Count 3.83 10^6/uL (4.20-5.40); Red Cell Dist. Width 14.3 % (11.5-14.5); White Blood Cell Count 24.9 10^3/uL (4.8-10.8)
[2023-12-30 08:41] LABS: ALT (SGPT) 509 U/L (0-35); AST (SGOT) 120 U/L (14-36); Albumin 3.4 g/dl (3.5-5.0); Alkaline Phosphatase 157 U/L (38-126); Blood Urea Nitrogen 12 mg/dl (7-17); Calcium 9.1 mg/dl (8.4-10.2); Carbon Dioxide 23 mmol/L (22-30); Chloride 104 mmol/L (98-107); Estimated Creatinine Clearance > 125 ml/min; Glucose 94 mg/dl (70-99); Lipase 853 U/L (23-300); Potassium 4.4 mmol/L (3.5-5.1); Sodium 140 mmol/L (135-145); Total Bilirubin 1.5 mg/dl (0.2-1.3); Total Protein 6.1 g/dl (6.3-8.2); eGFR > 60.00
[2023-12-30] MEDS: VISBIOME 2 CAP PO (08:43)
--- NOTE | 2023-12-30 08:55 | W.PN.HOSP.TC ---
Today's Communication/Plan
-
Clear liquid diet. IV fluids.
Assessment / Plan
Assessment / Plan
Physical exam:
General: No apparent distress today. Nontoxic appearance
HEENT: Normocephalic, Atraumatic and Moist Mucous Membranes
Respiratory: Clear to Auscultation; Negative Wheezes, Rales or Rhonchi
Cardiac: Regular Rhythm and S1/S2
GI: Soft, non tender and Nondistended. Postop findings
Musculoskeletal: No Clubbing, No Cyanosis and No Edema
Neuro: Awake, Alert and Oriented
Psych: Calm
ERCP:
- Multiple filling defects in gallbladder consistent
with stones were seen on the cholangiogram.
- The common bile duct was mildly dilated without
filling defects.
- The examination was suspicious for
cholecystolithiasis.
- A biliary sphincterotomy was performed.
- The biliary tree was swept and scant amount of
sludge was found. No stone was retrieved.
- LR was administered for PEP prophylaxis.
A/P:
Choledocholithiasis:
MRCP with positive findings
Status post ERCP on 12/26 with negative findings as above status post sphincterotomy (no stent)
Status post cholecystectomy on 12/27 and cholangiogram that was indeed positive for stones status post LTCBDE
Discussed with at bedside today on 12/29
Acute pancreatitis, post ERCP:
IV fluid
Pain control
Advance diet as tolerated when cleared by GI/surgery
Lipase over 4000--> 800's today
LFTs trending down
Postop pain likely related to pancreatitis and less likely postop/pancreatitis ileus:
Pain resolving
Having bowel movement and good bowel sounds
Continue to monitor closely
Leukocytosis:
Likely reactive
No clear signs of infection
Stopped antibiotics on 12/28 as recommended by surgery
Given the persistent of leukocytosis will do chest x-ray, repeat urinalysis, and check C. difficile stools if diarrhea.
Continue to monitor trend
Morbid obesity:
Lifestyle changes warranted
DVT prophylaxis:
Lovenox SQ
CODE STATUS:
Full code
Anticipated Discharge: 24 - 48 hours
Subjective/Interval History
-
Date of Service: December 30, 2023
Patient feels much better today. No abdominal pain no nausea or vomiting. Mild incisional abdominal discomfort. She is having bowel movement and actually some loose bowel movements. Afebrile.
Objective Data
-
Labs:
Laboratory Results
12/30/23
07:15
WBC 24.9 H
Hgb 11.2 L
Hct 35.5 L
Plt Count 422 H
Sodium 140
Potassium 4.4
Chloride 104
Carbon Dioxide 23
BUN 12
Creatinine 0.6
Glucose 94
Calcium 9.1
Total Bilirubin 1.5 H D
AST 120 H
ALT 509 H*
Alkaline Phosphatase 157 H
Vital Signs:
Vital Signs
Temp Pulse Resp BP Pulse Ox
98.8 F 93 16 152/95 97
12/30/23 07:00 12/30/23 07:00 12/30/23 07:00 12/30/23 07:00 12/30/23 07:00
I&O
12/29/23 12/30/23 12/31/23
06:59 06:59 06:59
Intake Total 1640 / 1640 3360 / 3360
Output Total 100 / 100
Balance 1640 / 1640 3260 / 3260
[2023-12-30 09:27] LABS: % Basophils 0.2 % (0-2); % Eosinophils 0.1 % (0-6); % Lymphocytes 6.2 % (20.5-51.1); % Monocytes 10.5 % (1.7-9.3); Absolute Basophils 0.1 10^3/uL (0-0.2); Absolute Immature Granulocytes 0.3 10^3/uL (0-0.05); Absolute Lymphocytes 1.5 10^3/uL (1.2-3.4); Absolute Monocytes 2.6 10^3/uL (0.1-0.6); Absolute Neutrophils 20.4 10^3/uL (1.4-6.5); Nucleated Red Blood Cells % 0 %
--- NOTE | 2023-12-30 11:17 | PTCARENOTE ---
Assumed care of pt from previous nurse. Pt is anxious, tearful, reassurance and active listening provided. Pt call hernandez is within reach, pt rings lizzy. conts with loose stool and pt has her menses. Went for xray, awaiting urinal sample. will cont to
monitor..
--- NOTE | 2023-12-30 11:39 | W.PN.GI.CBS2 ---
Addendum entered and electronically signed by Anisha Mi MD 12/30/23 14:14:
I saw and examined the patient.
The PSYCHOMETRIST's note was reviewed and I agree with the note.
Abdominal pain is better. Currently having diarrhea. Tolerating clear liquid diet. Labs showing leukocytosis. LFTs trending down.
plan
If tolerating clear liquid diet okay to advance to low-fat diet
Check stool for infection
Trend LFT
If stool testing negative for infection okay to start cholestyramine for diarrhea
Continue further postop care per surgery
Original Note:
Today's Communication / Plan
-
as per plan
Assessment / Plan
-
Impression:
The patient is a 28 year old female without significant surgical or medical history, presented to ER complaining from epigastric abdominal pain, jaundice and dark urine on 12/23/23. She reported that she has had this upper abdominal
discomfort/feeling bloated for about 5 months on and off, especially she was experiencing it after she had heavy dairy products that last for 5-8 hours with nausea. She was diagnosed with cholelithiasis in september 2023. On Wednesday, she noticed that
her urine had become quite dark and on Wednesday she noticed jaundice for the first time. Denies any color change with BM. Therefore she presented to ER on 12/23/23 and was obtained an Abdominal US which showed cholelithiasis and mild wall
thickening with hepatic steatosis. On PE, she has tenderness to the epigastric area as well as the RUQ.
Assessment /Plan:
- Cholelithiasis with choledocholithiasis s/p ERCP then lap hari with IOC
- post procedural pancreatitis
-Abd US: cholelithiasis and mild wall thickening with hepatic steatosis
-UA: May colored with 3+ urine bilirubin and urine urobilinogen
-MRCP is shows biliary ductal dilatation and distal choledocholithiasis.
-CXR 12/30/23 left lung bases atelectasis
ERCP 12/27/2023 Dr. Mason
Multiple filling defects in gallbladder noted on the cholangiogram
Common bile duct was mildly dilated without filling defect.
Biliary sphincterotomy was performed.
Biliary tree was swept and small amount of sludge was removed. No stone was retrieved
Lap hari with IOC Dr. Pettit 12/28/2023
Cholecystectomy. Positive IOC with thick sludge and stones, cleared with glucagon and advancement of cholangiocatheter into the duodenum.
Labs this a.m. 12/30/2023
WBC 24.9 up from 21.2�Hb 11.2 (down12.7) /platelet 422
AST 120 (down [id number])/ALT 509 (down from 815) /alkaline phosphatase 157 (down [id number])/total bilirubin 1.5 (down from 2.5)
Lipase > 4000
Plan:
continue clear liquid, can advance diet later today to low fat diet
Continue incentive Spirometer
Decrease Lactated Ringer's to 100 cc/hr.
If with further diarrhea consider testing for CDiff. discussed with Medicine Attending.
Leukocytosis, no further periumbilical pain. UA pending. CXR with left atelectasis. Antibiotics was DC by surgery on 12/29/23
Continue trend LFT, improving.
Follow-up surgical recommendation
-
Subjective
Subjective
Date of Service: December 30, 2023
Patient tolerating clears. Has an appetite today. No further periumbilical pain, just some mild incisional tenderness. Only pain meds required has been Tylenol in past 24 hrs. LFTs and Lipase trending down. Patient with loose stools since yesterday.
Leukocytosis increasing. Using incentive spirometer, had CXR this am showing left lobe atelectasis. UA pending. Encouraged continued use of incentive spirometer. Has been using hourly.
Objective
Data Reviewed
Laboratory Data:
Laboratory Results
12/30/23 07:15
12/30/23 07:15
Laboratory Results
Total Bilirubin 1.5 mg/dl (0.2-1.3) H D 12/30/23 07:15
AST 120 U/L (14-36) H 12/30/23 07:15
ALT 509 U/L (0-35) H* 12/30/23 07:15
Alkaline Phosphatase 157 U/L (38-126) H 12/30/23 07:15
Lipase 853 U/L (23-300) H 12/30/23 07:15
Vital Signs and I&O:
Vital Signs
Temp Pulse Resp BP Pulse Ox
98.8 F 93 16 152/95 97
12/30/23 07:00 12/30/23 07:00 12/30/23 07:00 12/30/23 07:00 12/30/23 07:45
I&O
12/29/23 12/30/23 12/31/23
06:59 06:59 06:59
Intake Total 1640 / 1640 3360 / 3360
Output Total 100 / 100
Balance 1640 / 1640 3260 / 3260
Physical Exam
Physical Exam
HEENT: Anicteric
Cardiology: Normal Sinus Rhythm
Pulmonary: Clear (decreased bases B/L )
GI: Soft, Non Distended and Other (mild incisional tenderness, hypoactive BS)
Extremities: No Edema
Neuro: Non Focal
[2023-12-30 12:12] LABS: Urine Albumin 2+ (Neg - Trace); Urine Bilirubin 1+ (Negative); Urine Character Slightly Cloudy (Clear); Urine Color Red; Urine Glucose Negative (Negative); Urine Ketone 3+ (Negative); Urine Leukocyte 2+ (Negative); Urine Nitrite Positive (Negative); Urine Occult Blood 4+ (Negative); Urine Urobilinogen 1+ (Neg - 1+); Urine pH 6.5 (5.0-9.0)
[2023-12-30 13:41] LABS: Urine Squamous Cell >30 /LPF (Few)
[2023-12-30 13:46] LABS: Urine Red Blood Cell >100 /HPF (0-2)
[2023-12-30 13:47] LABS: Urine Bacteria Many (Negative)
--- NOTE | 2023-12-30 14:19 | PTCARENOTE ---
Report called to Angel Richardson, IV removed
[2023-12-30 14:48] VITALS: BP 161/95
[2023-12-30] MEDS: ZOFRAN 4 MG IV ×2 (15:05→23:04)
[2023-12-30] MEDS: QUESTRAN 4 GRAM PO (15:05)
--- NOTE | 2023-12-30 15:09 | W.PN.GS2 ---
Today's Communication / Plan
-
No major changes, will continue manage expectantly
Assessment / Plan
-
This is a 28-year-old female who presented with right upper quadrant pain found to have choledocholithiasis on MRCP s/p negative ERCP 12/27/2023 with subsequent development of pancreatitis. She is POD #2 from a laparoscopic cholecystectomy with
cholangiogram that was positive, successful LTCBDE. Fairly significant pain currently, likely a combination of expected postop pain and sequela of pancreatitis.
Afebrile, vital signs stable. Leukocytosis up to 24K. Remainder of labs reassuring, LFTs downtrending as is her lipase.
If patient fails to clinically improve tomorrow, or develops fevers or tachycardia would recommend a CT abdomen pelvis with p.o. and IV contrast.
Follow-up C. difficile, doubt this is the underlying cause of her leukocytosis but reasonable to check.
Chest x-ray seen from this morning was reassuring, There is a fairly significant stomach bubble.
Would maintain on clears for now
Antibiotics stopped.
Pain and nausea control
Will follow with serial abdominal exams.
Time Spent
Total Time Spent with Patient (in minutes): 20
Subjective Data
-
Date of Service: December 30, 2023
Interval Events:
No acute events overnight. Slept okay. Pain improved but still very uncomfortable. Still some persistent nausea, no vomiting, +bowel function, now having diarrhea. Tolerating liquid diet.
Objective Data
-
Intake and Output
12/29/23 12/30/23 12/31/23
06:59 06:59 06:59
Intake Total 1640 / 1640 3360 / 3360
Output Total 100 / 100
Balance 1640 / 1640 3260 / 3260
Intake:
Oral fluids 240 / 240 860 / 860
IV fluids (Total) 1200 / 1200 2500 / 2500
Normosal 200 / 200
IV piggybacks 200 / 200
Output:
Emesis 100 / 100
Other:
Number of approximated MODERATE 1 5
amounts of urine
Number of approximated LARGE 2 6
amounts of urine
Vital Signs
Temp Pulse Resp BP Pulse Ox
99.3 F 88 18 161/95 99
12/30/23 14:48 12/30/23 14:48 12/30/23 14:48 12/30/23 14:48 12/30/23 14:48
Lab Results
12/30/23 07:15
12/30/23 07:15
Calcium 9.1 mg/dl (8.4-10.2) 12/30/23 07:15
Direct Bilirubin 2.7 mg/dl (0.0-0.4) H 12/28/23 08:02
Total Bilirubin 1.5 mg/dl (0.2-1.3) H D 12/30/23 07:15
AST 120 U/L (14-36) H 12/30/23 07:15
ALT 509 U/L (0-35) H* 12/30/23 07:15
Alkaline Phosphatase 157 U/L (38-126) H 12/30/23 07:15
Total Protein 6.1 g/dl (6.3-8.2) L 12/30/23 07:15
Albumin 3.4 g/dl (3.5-5.0) L 12/30/23 07:15
Physical Exam
-
GENERAL/NEURO: Awake, Alert, no distress
CHEST: Unlabored breathing on RA
ABDOMEN: Soft, obese, incisions are clean dry and intact. Still somewhat diffusely tender to palpation but much improved compared to yesterday's exam.
[2023-12-30] MEDS: TORADOL 15 MG IV ×2 (16:40→23:29)
[2023-12-30] MEDS: LOVENOX 40 MG SC (17:41)
[2023-12-30 23:40] VITALS: BP 162/102
[2023-12-31 04:40] VITALS: BP 144/94
[2023-12-31] MEDS: DILAUDID 0.5 MG IV (04:45)
[2023-12-31] MEDS: TYLENOL 1000 MG PO ×2 (06:13→12:14)
[2023-12-31] MEDS: TORADOL 15 MG IV ×2 (06:39→12:37)
[2023-12-31 07:21] VITALS: BP 151/95
[2023-12-31 07:27] LABS: % Basophils 0.3 % (0-2); % Eosinophils 0.2 % (0-6); % Immature Granulocytes 0.7 % (0-0.5); % Lymphocytes 11.4 % (20.5-51.1); % Monocytes 8.8 % (1.7-9.3); % Neutrophils 78.6 % (42.2-75.2); Absolute Basophils 0.1 10^3/uL (0-0.2); Absolute Eosinophils 0.1 10^3/uL (0-0.7); Absolute Immature Granulocytes 0.2 10^3/uL (0-0.05); Absolute Lymphocytes 2.4 10^3/uL (1.2-3.4); Absolute Monocytes 1.8 10^3/uL (0.1-0.6); Absolute Neutrophils 16.4 10^3/uL (1.4-6.5); Hematocrit 32.3 % (37.0-47.0); Hemoglobin 10.3 g/dL (12.0-16.0); Mean Corp Hgb Conc. 31.9 g/dL (33.0-37.0); Mean Corpuscular Hgb 29.5 pg (27.0-31.0); Mean Corpuscular Volume 92.6 fL (81.0-99.0); Mean Platelet Volume 9.8 fL (7.4-10.4); Nucleated Red Blood Cells % 0 %; Platelet Count 397 10^3/uL (130-400); Red Blood Cell Count 3.49 10^6/uL (4.20-5.40); Red Cell Dist. Width 14.5 % (11.5-14.5); White Blood Cell Count 20.9 10^3/uL (4.8-10.8)
[2023-12-31 08:03] LABS: ALT (SGPT) 299 U/L (0-35); AST (SGOT) 41 U/L (14-36); Albumin 3.3 g/dl (3.5-5.0); Alkaline Phosphatase 128 U/L (38-126); Blood Urea Nitrogen 14 mg/dl (7-17); Calcium 8.9 mg/dl (8.4-10.2); Carbon Dioxide 22 mmol/L (22-30); Chloride 104 mmol/L (98-107); Direct Bilirubin 0.8 mg/dl (0.0-0.4); Estimated Creatinine Clearance > 125 ml/min; Glucose 85 mg/dl (70-99); Potassium 3.7 mmol/L (3.5-5.1); Sodium 140 mmol/L (135-145); Total Protein 5.8 g/dl (6.3-8.2); eGFR > 60.00
--- NOTE | 2023-12-31 08:44 | W.PN.HOSP.TC ---
Today's Communication/Plan
-
Discharge planning today
Assessment / Plan
Assessment / Plan
Physical exam:
General: No apparent distress today. Nontoxic appearance
HEENT: Normocephalic, Atraumatic and Moist Mucous Membranes
Respiratory: Clear to Auscultation; Negative Wheezes, Rales or Rhonchi
Cardiac: Regular Rhythm and S1/S2
GI: Soft, non tender and Nondistended. Postop findings
Musculoskeletal: No Clubbing, No Cyanosis and No Edema
Neuro: Awake, Alert and Oriented
Psych: Calm
ERCP:
- Multiple filling defects in gallbladder consistent
with stones were seen on the cholangiogram.
- The common bile duct was mildly dilated without
filling defects.
- The examination was suspicious for
cholecystolithiasis.
- A biliary sphincterotomy was performed.
- The biliary tree was swept and scant amount of
sludge was found. No stone was retrieved.
- LR was administered for PEP prophylaxis.
A/P:
Choledocholithiasis:
MRCP with positive findings
Status post ERCP on 12/26 with negative findings as above status post sphincterotomy (no stent)
Status post cholecystectomy on 12/27 and cholangiogram that was indeed positive for stones status post LTCBDE
Discussed with at bedside today on 12/30
Surgery cleared for discharge today
Acute pancreatitis, post ERCP:
IV fluid
Pain control
Advance diet as tolerated when cleared by GI/surgery
Lipase over 4000--> 800's today
LFTs trending down
Postop pain likely related to pancreatitis and less likely postop/pancreatitis ileus:
Pain resolving
Having bowel movement and good bowel sounds
Continue to monitor closely
Leukocytosis:
Likely reactive
No clear signs of infection
Stopped antibiotics on 12/28 as recommended by surgery
Given the persistent of leukocytosis will do chest x-ray, repeat urinalysis, and check C. difficile stools if diarrhea.
Continue to monitor trend
Morbid obesity:
Lifestyle changes warranted
DVT prophylaxis:
Lovenox SQ
CODE STATUS:
Full code
Anticipated Discharge: Today
Subjective/Interval History
-
Date of Service: December 31, 2023
No new complaints.
Objective Data
-
Labs:
Laboratory Results
12/31/23
07:00
WBC 20.9 H
Hgb 10.3 L
Hct 32.3 L
Plt Count 397
Sodium 140
Potassium 3.7
Chloride 104
Carbon Dioxide 22
BUN 14
Creatinine 0.6
Glucose 85
Calcium 8.9
Total Bilirubin 1.0
AST 41 H
ALT 299 H
Alkaline Phosphatase 128 H
Vital Signs:
Vital Signs
Temp Pulse Resp BP Pulse Ox
98.8 F 103 20 151/95 94
12/31/23 07:21 12/31/23 07:21 12/31/23 07:21 12/31/23 07:21 12/31/23 07:21
I&O
12/30/23 12/31/23 01/01/24
06:59 06:59 06:59
Intake Total 3360 / 3360 1200 / 1200
Output Total 100 / 100
Balance 3260 / 3260 1200 / 1200
[2023-12-31] MEDS: QUESTRAN 4 GRAM PO (09:00)
[2023-12-31] MEDS: VISBIOME 2 CAP PO (09:00)
[2023-12-31] MEDS: FLUSH (NSS) 1 FLUSH IV ×2 (09:00→12:38)
--- NOTE | 2023-12-31 10:35 | W.PN.GS2 ---
Addendum entered and electronically signed by Jason Pettit MD 12/31/23 12:07:
I saw and examined the patient independently.
The Fire Coordinator's note was reviewed and I agree with the note, assessment and plan except where noted below.
Comment: Clinically much improved, hemoglobin has dipped down a bit patient is on her cycle. The remainder of her lab work and exam are very benign and reassuring.
Advance to a low-fat diet.
Recheck CBC in the afternoon.
Remainder of care per primary, if hemoglobin is stable and she is tolerating her diet she is cleared from a surgery perspective for discharge today.
Discharge instructions placed in chart and reviewed with patient.
Original Note:
Today's Communication / Plan
-
Advance to LFD
Assessment / Plan
-
This is a 28-year-old female who presented with right upper quadrant pain found to have choledocholithiasis on MRCP s/p negative ERCP 12/27/2023 with subsequent development of pancreatitis (now resolved).
She is POD #3 from a laparoscopic cholecystectomy with cholangiogram that was positive, successful LTCBDE.
Pain improving today, jaundice resolved with normal bilirubin and decreasing transaminases
Leukocytosis improved from 24k to 20k off ABX
Acute anemia present likely due to hemodilution and expected intraop losses
Stool cx pending, C-diff neg. Diarrhea still present, now on cholestyramine
Abnormal UA, but contaminated with >30 epithelial cells. UA's may also be falsely +for nitrates, blood when bilirubin present. she denies voiding complaints
Afebrile, mildly tachycardic
Plan:
Repeat CBC later today
Continue off IVF
Advance to low fat diet
Continue to follow off ABX
Analgesics as needed
Subjective Data
-
Date of Service: December 31, 2023
Patient seen and examined at bedside. OOB to chair. Minimal incisional pain mostly at the lower right lateral incision. Has been passing small liquid stools (3-4 today thus far). Denies n/v. No voiding complaints.
Objective Data
-
Intake and Output
12/30/23 12/31/23 01/01/24
06:59 06:59 06:59
Intake Total 3360 / 3360 1200 / 1200
Output Total 100 / 100
Balance 3260 / 3260 1200 / 1200
Intake:
Oral fluids 860 / 860
IV fluids (Total) 2500 / 2500 1200 / 1200
Output:
Emesis 100 / 100
Other:
Number of approximated MODERATE 5 3
amounts of urine
Number of approximated LARGE 6
amounts of urine
Vital Signs
Temp Pulse Resp BP Pulse Ox
98.8 F 103 20 151/95 94
12/31/23 07:21 12/31/23 07:21 12/31/23 07:21 12/31/23 07:21 12/31/23 08:55
Lab Results
12/31/23 07:00
Calcium 8.9 mg/dl (8.4-10.2) 12/31/23 07:00
Total Bilirubin 1.0 mg/dl (0.2-1.3) 12/31/23 07:00
Direct Bilirubin 0.8 mg/dl (0.0-0.4) H 12/31/23 07:00
AST 41 U/L (14-36) H 12/31/23 07:00
ALT 299 U/L (0-35) H 12/31/23 07:00
Alkaline Phosphatase 128 U/L (38-126) H 12/31/23 07:00
Total Protein 5.8 g/dl (6.3-8.2) L 12/31/23 07:00
Albumin 3.3 g/dl (3.5-5.0) L 12/31/23 07:00
Physical Exam
-
GENERAL/NEURO: Awake, Alert, no distress
CHEST: Unlabored breathing on RA
ABDOMEN: Soft, obese, incisions are clean dry and intact without ecchymosis or eythema. Mild tenderness to incisions
SKIN: Pale, non-jaundiced
[2023-12-31] MEDS: LIDOCAINE 4% PATCH 1 PATCH TOPICAL (12:15)
[2023-12-31 14:04] LABS: Hematocrit 33.1 % (37.0-47.0); Hemoglobin 10.8 g/dL (12.0-16.0); Mean Corp Hgb Conc. 32.6 g/dL (33.0-37.0); Mean Corpuscular Hgb 29.9 pg (27.0-31.0); Mean Corpuscular Volume 91.7 fL (81.0-99.0); Mean Platelet Volume 9.7 fL (7.4-10.4); Platelet Count 422 10^3/uL (130-400); Red Blood Cell Count 3.61 10^6/uL (4.20-5.40); Red Cell Dist. Width 14.4 % (11.5-14.5); White Blood Cell Count 19.8 10^3/uL (4.8-10.8)
--- NOTE | 2023-12-31 14:28 | W.DCSUMMARY ---
Discharge Summary
Discharge Data
Date of Admission: 12/23/23
Date of Discharge: 12/31/23
-
Pending Results: No
Hospital Course
Patient 28 years old female came into the hospital with abdominal pain and elevated LFTs. GI and surgery consulted. She had MRCP consistent with choledocholithiasis so she underwent ERCP but noticed no stone found just some sludge. She underwent
cholecystectomy and IOC did reveal that she had some stones therefore it was cleared with glucagon and advancement of cholangiocatheter into the duodenum. Patient post ERCP developed acute pancreatitis. She was kept on clear liquid diet and
aggressive IV fluids and pain control. Patient eventually improved and her LFTs started to trend down as well as her lipase. Patient also had some leukocytosis and she had an infectious workup that did not reveal any signs of infection and
antibiotics were discontinued and she did well off antibiotics. She had some elevated blood pressure readings in the setting of multiple triggers during this hospital stay and she has not been diagnosed formally with hypertension therefore she is
to follow-up with PCP for blood pressure monitor as outpatient. Patient feels back to her baseline with no abdominal pain and able to tolerate food. Surgery cleared her for discharge today. She will be discharged in stable condition today.
Discharge duration: 32 minutes
Discharge Plan
-
Patient Disposition: Home (Routine Discharge)
Discharge Diagnosis/Procedures: Choledocholithiasis. Cholelithiasis status post cholecystectomy. Acute pancreatitis status post procedure.
Diet: Low Fat
Additional Diets: If you have loose stools after surgery, avoid oily or greasy foods as well as high fat dairy products
Bathing Restrictions: OK to Shower
Blood Work: Please PCP to order CBC, CMP within 1 week.
Wound Care: Allow the glue over your incisions to flake off on its own in 2-3 weeks. Beneath the glue are dissolving sutures.
Activity Restrictions/Additional Instructions:
Instructions following Laparoscopic Cholecystectomy
Please call [phone] if you have any questions or concerns after your surgery.
Wound Care:
Your incisions are covered with skin glue which will come off on its own in 5-10 days.
It is ok to shower the day after your surgery. Do not scrub the incisions, let soap and water wash over them and pat dry.
� Bruising around your incisions is normal.
� Using ice packs will help minimize this swelling.
� No swimming or soaking incisions for 1 week.
� Your stitches will dissolve and do not need to be removed.
Urinary retention:
If you are unable to urinate 6-8 hours after your surgery, please call [phone] to discuss further management.
Activity:
No heavy lifting more than 15 pounds for the next 3 weeks, then you may gradually lift heavier objects as tolerated by discomfort. Otherwise activity as tolerated by your comfort level.
Pain Management:
Use Tylenol, ibuprofen and ice packs to treat your pain.
� You may take 650 milligrams of Tylenol (Max 3 grams per day) every 6 hours, and 600 mg of ibuprofen also every 6 hours. (you can alternate them every 3 hours)
� You may use an ice pack to your incision as needed.
� If you still have pain not controlled by these measures, take your prescription pain medication as prescribed.
Medications:
You may resume your home medications.
[YOU CAN RESTART YOUR ON AT YOUR USUAL DOSE AND TIME]
Bowel Medications:
Prescription pain medication can make you constipated. If you take this medication, also take colace 100 mg twice daily (this is over the counter). If this is not sufficient, you may take Miralax (polyethylene glycol) to help move your bowels.
Diet:
After your procedure, there are no dietary restrictions. However, you may notice some loose stools with fatty meals for up to 4 weeks after surgery. If this is the case, please adjust to a low fat diet as needed.
Driving restrictions:
No driving if you are taking prescription pain medication or if you think your normal reaction time and attentiveness has been slowed by your surgery.
Things to Look out for:
Worsening Abdominal pain, fever, jaundice, redness or drainage from incision
Call Doctor for:
Please call if you notice worsening redness or drainage from incision(s) lasting longer than 5 days after your surgery, any foul-smelling drainage from the incision, pain not controlled by pain medications, persistent nausea and vomiting, or for any
fevers greater than 101.3 F. The number for questions/concerns is [phone]
Follow-up:
A follow-up appointment will be scheduled with your surgeon in 3-4 weeks. Please call prior to your appointment if you have any questions or concerns. [phone]
Stand Alone Forms: Back to School, Return to Work
Referrals:
Jason Pettit MD [Active] -
Trey Olivier MD [Family Provider] - in less than 1 week
Prescriptions:
New
acetaminophen [Tylenol] 325 mg tablet
650 mg PO Q8HPRN PRN (Reason: Pain) Qty: 14 0RF
Rx Instructions:
Not to exceed 2 g in 24 hours.
Continued
norethindrone-e.estradiol-iron [Junel FE 1.5/30 (28)] 1.5 mg-30 mcg (21)/75 mg (7) tablet
1 tab PO HS
therapeutic multivitamin Tablet
1 tab PO DAILY
Discharge Orders:
Discharge Patient (As Directed); Ordered 12/31/23
Ordered By: Baljeet Bush
Discharge Date and Time
Discharge Date/Time: 12/31/23 16:15
Print Language: NIGERIEN
[2023-12-31 15:00] VITALS: BP 152/99
[2023-12-31 15:14] VITALS: BP 158/104
--- NOTE | 2023-12-31 15:28 | W.PN.GI.CBS2 ---
Today's Communication / Plan
-
GI signing off
Assessment / Plan
-
Impression:
The patient is a 28 year old female without significant surgical or medical history, presented to ER complaining from epigastric abdominal pain, jaundice and dark urine on 12/23/23. She reported that she has had this upper abdominal
discomfort/feeling bloated for about 5 months on and off, especially she was experiencing it after she had heavy dairy products that last for 5-8 hours with nausea. She was diagnosed with cholelithiasis in september 2023. On Wednesday, she noticed that
her urine had become quite dark and on Wednesday she noticed jaundice for the first time. Denies any color change with BM. Therefore she presented to ER on 12/23/23 and was obtained an Abdominal US which showed cholelithiasis and mild wall
thickening with hepatic steatosis. On PE, she has tenderness to the epigastric area as well as the RUQ.
Assessment /Plan:
- Cholelithiasis with choledocholithiasis s/p ERCP then lap hari with IOC
- post procedural pancreatitis
-Abd US: cholelithiasis and mild wall thickening with hepatic steatosis
-UA: May colored with 3+ urine bilirubin and urine urobilinogen
-MRCP is shows biliary ductal dilatation and distal choledocholithiasis.
-CXR 12/30/23 left lung bases atelectasis
ERCP 12/27/2023 Dr. Mason
Multiple filling defects in gallbladder noted on the cholangiogram
Common bile duct was mildly dilated without filling defect.
Biliary sphincterotomy was performed.
Biliary tree was swept and small amount of sludge was removed. No stone was retrieved
Lap hari with IOC Dr. Pettit 12/28/2023
Cholecystectomy. Positive IOC with thick sludge and stones, cleared with glucagon and advancement of cholangiocatheter into the duodenum.
Plan:
-Continue low-fat diet
Call office if not with improvement of stools. Will send over prescription for cholestyramine/colestipol.
Would recommend follow-up with PCP for LFTs in 1 to 2 weeks.
-Will be available as needed or by request.
-
Subjective
Subjective
Date of Service: December 31, 2023
Patient doing well. Up and out of bed. Getting ready to be discharged. No abdominal pain. Eating well passing flatus. Tolerating solid diet without any difficulty. Leukocytosis improved. Bowels improved with cholestyramine. LFTs markedly
improved.
Objective
Data Reviewed
Laboratory Data:
Laboratory Results
12/31/23 13:48
12/31/23 07:00
Laboratory Results
Total Bilirubin 1.0 mg/dl (0.2-1.3) 12/31/23 07:00
AST 41 U/L (14-36) H 12/31/23 07:00
ALT 299 U/L (0-35) H 12/31/23 07:00
Alkaline Phosphatase 128 U/L (38-126) H 12/31/23 07:00
Lipase 853 U/L (23-300) H 12/30/23 07:15
Vital Signs and I&O:
Vital Signs
Temp Pulse Resp BP Pulse Ox
99.1 F 97 20 158/104 99
12/31/23 15:14 12/31/23 15:14 12/31/23 15:14 12/31/23 15:14 12/31/23 15:14
I&O
12/30/23 12/31/23 01/01/24
06:59 06:59 06:59
Intake Total 3360 / 3360 1200 / 1200 840 / 840
Output Total 100 / 100
Balance 3260 / 3260 1200 / 1200 840 / 840
Physical Exam
Physical Exam
HEENT: Anicteric
Cardiology: Normal Sinus Rhythm
Pulmonary: Clear
GI: Soft, Non Distended, Non Tender and Normal Bowel Sounds
Neuro: Non Focal
--- NOTE | 2023-12-31 17:13 | CM ---
Chart reviewed and patient seen bedside. IA completed previously. Venessa denied needs for discharge.
Plan: Discharge to home with no identified needs.
== END 2023-12-31 16:15 | disposition home or self-care (01) | DRG 417 ==
LOC: 4 EAST ACU 23:45
PROVIDERS: Emergency Medicine; Internal Medicine; Nurse Practitioner; Physician Assistant; Radiology Diagnostic Radiology; Radiology Vascular & Interventional Radiology; Registered Nurse; Surgery; ADMITTING PHYSICIAN Hospitalist; ATTENDING PHYSICIAN Hospitalist; CONSULT PHYSICIAN Internal Medicine; EMERGENCY PHYSICIAN Emergency Medicine; FAMILY PHYSICIAN Family Medicine; OTHER PHYSICIAN Surgery
PROC: 0F798ZZ Dilation of Common Bile Duct, Via Natural or Artificial Opening Endoscopic (ICD-10-PCS; 2023-12-27)
PROC: 0FT44ZZ Resection of Gallbladder, Percutaneous Endoscopic Approach (ICD-10-PCS; 2023-12-27)
PROC: BF101ZZ Fluoroscopy of Bile Ducts using Low Osmolar Contrast (ICD-10-PCS; 2023-12-28)
DX: K80.64 Calculus of gallbladder and bile duct with chronic cholecystitis without obstruction (principal); K85.80 Other acute pancreatitis without necrosis or infection; K52.1 Toxic gastroenteritis and colitis; T36.8X5A Adverse effect of other systemic antibiotics, initial encounter; K76.0 Fatty (change of) liver, not elsewhere classified; E66.01 Morbid (severe) obesity due to excess calories; Z68.35 Body mass index [BMI] 35.0-35.9, adult; Z88.2 Allergy status to sulfonamides
CPT/HCPCS: 88304; 71046; 74181; 74300; 74330; 76000; 76700; 80053; 81003; 81015; 82248; 83690; 84703; 85025; 85027; 87045; 87046; 87086; 87324; 87427; 87449; 93005; 93971; 96361; 96365; 96375; 99285; A4300; C1769; J1610

== ENCOUNTER → 2024-05-31 08:43 | Outpatient (REF) | payer OTHER, SELFPAY ==
[2024-05-31 15:20] LABS: % Basophils 0.5 % (0-2); % Eosinophils 1.2 % (0-6); % Immature Granulocytes 0.3 % (0-0.5); % Lymphocytes 24.6 % (20.5-51.1); % Monocytes 7.4 % (1.7-9.3); Absolute Basophils 0.1 10^3/uL (0-0.2); Absolute Eosinophils 0.1 10^3/uL (0-0.7); Absolute Lymphocytes 2.3 10^3/uL (1.2-3.4); Absolute Monocytes 0.7 10^3/uL (0.1-0.6); Hematocrit 41.9 % (37.0-47.0); Mean Corp Hgb Conc. 33.4 g/dL (33.0-37.0); Mean Corpuscular Hgb 29.6 pg (27.0-31.0); Mean Corpuscular Volume 88.6 fL (81.0-99.0); Mean Platelet Volume 9.3 fL (7.4-10.4); Nucleated Red Blood Cells % 0 %; Platelet Count 456 10^3/uL (130-400); Red Blood Cell Count 4.73 10^6/uL (4.20-5.40); Red Cell Dist. Width 13.2 % (11.5-14.5); White Blood Cell Count 9.2 10^3/uL (4.8-10.8)
== END ==
LOC: HWLAB 08:43
PROVIDERS: ATTENDING PHYSICIAN Student in an Organized Health Care Education/Training Program
DX: D75.839 Thrombocytosis, unspecified (principal)
CPT/HCPCS: 36415; 85025